=== PATIENT | male | born 1940 | race Caucasian/White ===

== ENCOUNTER 2020-06-09 11:34 | Emergency (ER) | payer MEDICARE, SELFPAY ==
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
[2020-06-09 11:36] VITALS: BP 115/85; PULSE 72; RESP 16; TEMP 36.3; O2SAT 100
--- NOTE | 2020-06-09 12:09 | ED.ABDPAIN ---
HPI - Abdominal Pain General Chief Complaint: Abdominal Pain Stated Complaint: abd pain Time Seen by Provider: 06/09/20 12:07 History of Present Illness HPI narrative: Abdominal pain for the past 4 days. Started suddenly in the right flank while cooking dinner. At that time it was sharp and severe. Over the next day it moved into the entire abdomen and became mild and dull. He has not had a bowel movement since onset. This is associated with loss of appetitie. He has a ventral hernia. No prior surgeries. Additionally having some GARCIA. No chest pain, cough, fever. Related Data Home Medications Medication Instructions Recorded Confirmed amlodipine 5 mg tablet 5 mg PO DAILY 02/14/20 aspirin 325 mg tablet 325 mg PO 3XW 02/14/20 chlorthalidone 25 mg tablet 25 mg PO DAILY 02/14/20 potassium chloride 20 mEq 20 meq PO TID 02/14/20 tablet,extended release quinapril 40 mg tablet 40 mg PO DAILY 02/14/20 spironolactone 50 mg tablet 50 mg PO DAILY 02/14/20 Allergies Allergy/AdvReac Type Severity Reaction Status Date / Time gabapentin Allergy Unknown Unknown Verified 06/09/20 11:42 Review of Systems Review of Systems: All systems reviewed & are unremarkable except as noted in HPI and below Constitutional: Constitutional: Denies chills, Denies fever(s) and Reports weakness ENT: Denies sore throat Cardiovascular: Cardiovascular: Denies chest pain Respiratory: Respiratory: Denies chest congestion, Denies cough, Reports dyspnea and Denies wheezing Gastrointestinal: Gastrointestinal: Reports abdominal pain, Reports constipation, Denies diarrhea and Denies vomiting Genitourinary: Genitourinary: Denies hematuria, Denies dysuria and Denies urinary frequency Musculoskeletal: Musculoskeletal: Denies back pain Neurologic: Denies dizziness and Reports weakness PMF Past Medical History Medical History HERNÁN (generalized anxiety disorder) HTN (hypertension) Osteoarthritis PAF (paroxysmal atrial fibrillation) Family History Family History Father Hypertension Family history of coronary artery disease Mother Hypertension Family history of diabetes mellitus in first degree relative Social History Social History Smoking status: Heavy tobacco smoker Alcohol intake: never Gender identity (if verbalized by the patient): Male Exam Const: General: healthy appearing, no acute distress and alert Orientation/consciousness: patient oriented x3 HENMT: Head: normal to inspection Neck: Neck: normal visual inspection and no lymphadenopathy Chest: Chest palpation & inspection: no tenderness Resp: Effort & Inspection: normal respiratory effort Auscultation: clear to auscultation bilaterally, no rales, no rhonchi and no wheezes Cardio: Jugular venous distension: no JVD Rate: regular rate Rhythm: regular rhythm Heart sounds: no murmurs GI: Inspection: non-distended GI Palp: Yes Soft to palpation and No Tenderness to palpation present (GI) Skin: General skin exam: normal color Neuro: General: patient oriented x3 and moves all extremities Speech: normal speech Extrem: General: no edema Psych: Appearance: grossly normal and well kempt Mental Status: mental status grossly normal Affect: normal affect Thought content: Yes Normal thought content present Course Vital Signs Vital signs: Vital Signs Temperature 36.3 C L 06/09/20 11:36 Pulse Rate 72 06/09/20 11:36 Respiratory Rate 16 06/09/20 11:36 Blood Pressure 115/85 06/09/20 11:36 Pulse Oximetry 100 06/09/20 11:36 Temperature 36.3 C L 06/09/20 11:36 Pulse Rate 80 06/09/20 14:55 Respiratory Rate 18 06/09/20 14:55 Blood Pressure 132/78 06/09/20 14:55 Pulse Oximetry 99 06/09/20 14:55 MDM - Abdominal Pain MDM Narrative Medical decision making narra
[2020-06-09 13:00] LABS: Basophils Percent Auto 0.2 % (0.2-1.2); Eosinophils Percent Auto 0.5 % (0-4.4); Hematocrit 29.1 % (42.0-52.0); Hemoglobin 10.1 g/dL (14.0-18.0); Immature Granulocyte Absolute 0.03 K/mm3 (0.00-0.031); Immature Granulocyte Percent A 0.3 % (0-0.5); Lymphocytes Absolute Auto 1.41 K/mm3 (0.9-3.2); Lymphocytes Percent Auto 16.4 % (18.3-44.2); Mean Corpuscular HGB Conc 34.7 g/dl (32-36); Mean Corpuscular Volume 89.3 fl (80-100); Mean Platelet Volume 10.7 fl (7.4-10.4); Monocytes Absolute Auto 1.3 K/mm3 (0.1-0.6); Monocytes Percent Auto 14.5 % (2.6-8.5); Neutrophils Absolute Auto 5.9 K/mm3 (1.3-6.7); Neutrophils Percent Auto 68.1 % (45.5-73.1); Platelet Count Result 234 k/mm3 (150-375); Red Blood Count 3.26 M/mm3 (4.6-6.20); Red Cell Distribution Width 13.4 % (11.5-14.5); White Blood Count 8.6 K/mm3 (4.5-10.0)
[2020-06-09 13:05] LABS: Alanine Aminotransferase 13 U/L (4-50); Albumin Level 4.2 g/dL (3.5-5.1); Alkaline Phosphatase 44 U/L (38-126); Anion Gap 7 mmol/L (8-16); Aspartate Amino Transferase 15 U/L (17-59); Bilirubin,Total 3.1 mg/dL (0.2-1.3); Blood Urea Nitrogen 25 mg/dL (9-20); Calcium 9.3 mg/dL (8.4-10.2); Carbon Dioxide 28 mmol/L (22-30); Chloride 102 mmol/L (98-107); Estimated CRCL calculation 35 ml/min; Estimated Glomerular Filt Rate 42; Glucose 123 mg/dL (75-110); Lipase 25 U/L (23-300); Potassium 4.1 mmol/L (3.4-5.0); Sodium 137 mmol/L (137-145)
[2020-06-09 13:15] LABS: NT Pro B Type Natriuretic Pept 178 PG/ML (5-100)
[2020-06-09 13:48] VITALS: BP 120/70; PULSE 78; RESP 18; O2SAT 99
[2020-06-09 13:55] LABS: Add Urine Microscopic? YES; Appearance Urine Clear (Clear); Bacteria Urine Trace /hpf; Bilirubin Urine Negative (Negative); Blood Urine Negative (Negative); Color Urine Yellow (Yellow); Glucose Urine UA Negative (Negative); Ketones Urine Negative (Negative); Leukocyte Esterase Ur Negative LEU/UL (Negative); Mucus Urine Rare /lpf; Nitrate Urine Negative (Negative); Protein Urine Negative (Negative); Specific Grav Ur 1.024 (1.001-1.035); Urobilinogen Urine Negative mg/dL (<2.0); WBC Urine 0-3 /hpf
[2020-06-09] MEDS: SODIUM CHLORIDE 0.9% IV 500 ML 999 ML IV CONT (13:56)
[2020-06-09 14:55] VITALS: BP 132/78; PULSE 80; RESP 18; O2SAT 99
== END 2020-06-09 15:13 | disposition home or self-care (01) ==
PROVIDERS: Emergency Provider Emergency Medicine; PCP Family Medicine
DX: J90 Pleural effusion, not elsewhere classified (principal); S37.011A Minor contusion of right kidney, initial encounter; Z79.82 Long term (current) use of aspirin; I10 Essential (primary) hypertension; F41.1 Generalized anxiety disorder; M19.90 Unspecified osteoarthritis, unspecified site; I48.0 Paroxysmal atrial fibrillation; E27.8 Other specified disorders of adrenal gland; N28.89 Other specified disorders of kidney and ureter; X58.XXXA Exposure to other specified factors, initial encounter
CPT/HCPCS: 36415; 71046; 74177; 80053; 81001; 83690; 83880; 85025; 96360; 99284; J7040; Q9967

== ENCOUNTER 2020-06-12 12:06 | Outpatient (CLI) | payer MEDICARE, SELFPAY ==
[2020-06-12 12:29] LABS: Basophils Percent Auto 0.2 % (0.2-1.2); Eosinophils Percent Auto 0.5 % (0-4.4); Hematocrit 30.6 % (42.0-52.0); Hemoglobin 10.7 g/dL (14.0-18.0); Immature Granulocyte Absolute 0.03 K/mm3 (0.00-0.031); Immature Granulocyte Percent A 0.3 % (0-0.5); Lymphocytes Absolute Auto 1.58 K/mm3 (0.9-3.2); Mean Corpuscular Volume 88.7 fl (80-100); Mean Platelet Volume 10.3 fl (7.4-10.4); Monocytes Absolute Auto 0.9 K/mm3 (0.1-0.6); Monocytes Percent Auto 10.7 % (2.6-8.5); Neutrophils Absolute Auto 6.2 K/mm3 (1.3-6.7); Neutrophils Percent Auto 70.3 % (45.5-73.1); Platelet Count Result 327 k/mm3 (150-375); Red Blood Count 3.45 M/mm3 (4.6-6.20); Red Cell Distribution Width 13.4 % (11.5-14.5); White Blood Count 8.8 K/mm3 (4.5-10.0)
[2020-06-12 12:39] LABS: Alanine Aminotransferase 17 U/L (4-50); Albumin Level 4.1 g/dL (3.5-5.1); Alkaline Phosphatase 50 U/L (38-126); Anion Gap 10 mmol/L (8-16); Aspartate Amino Transferase 18 U/L (17-59); Bilirubin,Total 1.9 mg/dL (0.2-1.3); Blood Urea Nitrogen 32 mg/dL (9-20); Calcium 9.4 mg/dL (8.4-10.2); Carbon Dioxide 26 mmol/L (22-30); Chloride 101 mmol/L (98-107); Estimated Glomerular Filt Rate 39; Glucose 117 mg/dL (75-110); Potassium 3.8 mmol/L (3.4-5.0); Sodium 137 mmol/L (137-145)
[2020-06-12 13:43] LABS: Folic Acid 15.6 ng/mL (2.76->20)
== END 2020-06-12 12:07 | disposition home or self-care (01) ==
PROVIDERS: PCP Family Medicine; Visit Provider Physician Assistant
DX: K59.00 Constipation, unspecified (principal); R10.31 Right lower quadrant pain; R63.0 Anorexia; R53.83 Other fatigue
CPT/HCPCS: 36415; 80053; 82607; 82746; 84443; 85025

== ENCOUNTER 2020-06-30 14:22 | Outpatient (CLI) | payer MEDICARE, SELFPAY ==
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
[2020-06-30 14:55] LABS: Estimated Glomerular Filt Rate 49
== END 2020-06-30 14:23 | disposition home or self-care (01) ==
PROVIDERS: PCP Family Medicine; Visit Provider Urology
DX: S37.011A Minor contusion of right kidney, initial encounter (principal); J90 Pleural effusion, not elsewhere classified; E27.9 Disorder of adrenal gland, unspecified
CPT/HCPCS: 74178; Q9967

== ENCOUNTER 2020-10-13 09:07 | Outpatient (CLI) | payer MEDICARE, SELFPAY ==
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
[2020-10-13 09:37] LABS: Estimated Glomerular Filt Rate 59
== END 2020-10-13 09:08 | disposition home or self-care (01) ==
PROVIDERS: PCP Family Medicine; Visit Provider Urology
DX: S37.011A Minor contusion of right kidney, initial encounter (principal)
CPT/HCPCS: 74178; Q9967

== ENCOUNTER 2020-12-05 11:12 | Outpatient (CLI) | payer MEDICARE, SELFPAY ==
[2020-12-05 11:40] LABS: Basophils Percent Auto 0.5 % (0.2-1.2); Eosinophils Absolute Auto 0.1 K/mm3 (0-0.3); Eosinophils Percent Auto 1.2 % (0-4.4); Hematocrit 40.2 % (42.0-52.0); Hemoglobin 14.3 g/dL (14.0-18.0); Immature Granulocyte Absolute 0.03 K/mm3 (0.00-0.031); Immature Granulocyte Percent A 0.5 % (0-0.5); Lymphocytes Absolute Auto 1.66 K/mm3 (0.9-3.2); Lymphocytes Percent Auto 28.4 % (18.3-44.2); Mean Corpuscular HGB Conc 35.6 g/dl (32-36); Mean Corpuscular Hemoglobin 31.2 pg (26-34); Mean Corpuscular Volume 87.8 fl (80-100); Mean Platelet Volume 10.5 fl (7.4-10.4); Monocytes Absolute Auto 0.5 K/mm3 (0.1-0.6); Neutrophils Absolute Auto 3.6 K/mm3 (1.3-6.7); Neutrophils Percent Auto 61.4 % (45.5-73.1); Platelet Count Result 203 k/mm3 (150-375); Red Blood Count 4.58 M/mm3 (4.6-6.20); Red Cell Distribution Width 14.4 % (11.5-14.5); White Blood Count 5.8 K/mm3 (4.5-10.0)
[2020-12-05 11:47] LABS: Alanine Aminotransferase 10 U/L (4-50); Albumin Level 4.6 g/dL (3.5-5.1); Alkaline Phosphatase 46 U/L (38-126); Anion Gap 8 mmol/L (8-16); Aspartate Amino Transferase 15 U/L (17-59); Bilirubin,Total 0.9 mg/dL (0.2-1.3); Blood Urea Nitrogen 21 mg/dL (9-20); Carbon Dioxide 32 mmol/L (22-30); Chloride 103 mmol/L (98-107); Cholesterol 149 mg/dL (0-200); Estimated Glomerular Filt Rate 59; Glucose 96 mg/dL (75-110); HDL Direct 45 mg/dL; Potassium 3.8 mmol/L (3.4-5.0); Sodium 143 mmol/L (137-145); Triglycerides 72 mg/dL (<150)
[2020-12-05 11:58] LABS: LDL Cholesterol Direct 93 mg/dL
[2020-12-05 11:58] LABS: Add Urine Microscopic? NO; Appearance Urine Clear (Clear); Bilirubin Urine Negative (Negative); Blood Urine Negative (Negative); Color Urine Straw (Yellow); Glucose Urine UA Negative (Negative); Ketones Urine Negative (Negative); Leukocyte Esterase Ur Negative LEU/UL (NEGATIVE); Mucus Urine Rare /lpf; Nitrate Urine Negative (Negative); Protein Urine Negative (Negative); Specific Grav Ur 1.009 (1.001-1.035); Urobilinogen Urine Negative mg/dL (<2.0); WBC Urine 0-3 /hpf (0-3)
[2020-12-05 12:19] LABS: Prostate Specific Antigen 0.8 ng/mL (< OR = 4.0)
== END 2020-12-05 11:13 | disposition home or self-care (01) ==
LOC: ANHLAB 11:14
PROVIDERS: PCP Family Medicine; Visit Provider Nurse Practitioner Family
DX: E78.2 Mixed hyperlipidemia (principal); R35.1 Nocturia; I10 Essential (primary) hypertension; K62.5 Hemorrhage of anus and rectum; S37.011A Minor contusion of right kidney, initial encounter; Z12.5 Encounter for screening for malignant neoplasm of prostate
CPT/HCPCS: 36415; 80053; 80061; 81003; 84153; 84443; 85025; G0103

== ENCOUNTER → 2020-12-20 01:48 | Outpatient (CLI) | payer MEDICARE, SELFPAY ==
[2020-12-20 18:54] LABS: SARS-CoV-2 RNA PCR Negative
== END ==
PROVIDERS: PCP Family Medicine; Visit Provider Internal Medicine Gastroenterology
DX: Z01.812 Encounter for preprocedural laboratory examination (principal); Z20.822 Contact with and (suspected) exposure to COVID-19
CPT/HCPCS: C9803; U0003; U0005

== ENCOUNTER 2020-12-24 00:48 | Day surgery (SDC) | payer MEDICARE, SELFPAY ==
[2020-12-15 16:02] VITALS: BMI 24.4
--- NOTE | 2020-12-23 11:38 | WPDANESEPPF ---
Anes - Initial Pre Proc Eval Procedure: Operation Date: 12/24/20 09:00 Proposed Procedures p Colonoscopy - Tony Tejeda MD <Hernán Torres DO - Last Filed: 01/06/21 17:29> Date/Time: 12/23/20 11:38 <Hernán Torres DO - Last Filed: 01/06/21 17:29> Surgeon: Tony Tejeda MD <Hernán Torres DO - Last Filed: 01/06/21 17:29> Pre Op Diagnosis: Rectal Bleeding <Hernán Torres DO - Last Filed: 01/06/21 17:29> Patient Data Age: 80 Gender: M Height: 1.75 m Weight: 75 kg <Hernán Torres DO - Last Filed: 01/06/21 17:29> Allergies Allergy/AdvReac Type Severity Reaction Status Date / Time No Known Allergies Allergy Verified 12/24/20 07:52 <Hernán Torres DO - Last Filed: 01/06/21 17:29> Home Medications Medication Instructions Recorded Confirmed Type amlodipine 5 mg tablet 5 mg PO DAILY 02/14/20 12/15/20 History aspirin 325 mg tablet 325 mg PO 3XW 02/14/20 12/15/20 History chlorthalidone 25 mg tablet 25 mg PO DAILY 02/14/20 12/15/20 History potassium chloride 20 mEq 20 meq PO TID 02/14/20 12/15/20 History tablet,extended release quinapril 40 mg tablet 40 mg PO DAILY 02/14/20 12/15/20 History spironolactone 50 mg tablet 50 mg PO DAILY 02/14/20 12/15/20 History hydrocortisone 1 % topical cream 1 applic TOPICAL BID #28.35 g 12/24/20 Rx <Hernán Torres DO - Last Filed: 01/06/21 17:29> Patient hx anesthesia problems: none <Donald Killian MD - Last Filed: 12/24/20 08:05> Family hx anesthesia problems: none <Donald Killian MD - Last Filed: 12/24/20 08:05> [facility] Past Medical History Medical History: Medical History (Updated 12/09/20 @ 16:41 by STACIE Cohen) HERNÁN (generalized anxiety disorder) HTN (hypertension) Osteoarthritis PAF (paroxysmal atrial fibrillation) <Hernán Torres DO - Last Filed: 01/06/21 17:29> Family History Family History: Family History Father Hypertension Family history of coronary artery disease Mother Hypertension Family history of diabetes mellitus in first degree relative <Hernán Torres DO - Last Filed: 01/06/21 17:29> Social History Social History: Social History (Updated 12/05/20 @ 10:29 by Bebe Almeida MA) Smoking packs per day: 1 Smoking cigarettes per day: 20.0 Years smoked: 40 Smoking pack-years: 40.00 Smoking status: Current every day smoker Tobacco type: cigarettes Alcohol intake: never Substance use: never Substance use type: does not use Living arrangements: with family Gender identity (if verbalized by the patient): Male Spiritual care concerns: No <Hernán Torres DO - Last Filed: 01/06/21 17:29> Anes - Eval Final PreProcedure Day of Procedure 12/23/20 11:38 <Hernán Torres DO - Last Filed: 01/06/21 17:29> Patient weight: normal <Hernán Torres DO - Last Filed: 01/06/21 17:29> Heart: regular rate and rhythm <Hernán Torres DO - Last Filed: 01/06/21 17:29> Lungs: clear to auscultation and normal air movement <Hernán Torres DO - Last Filed: 01/06/21 17:29> Airway: Mallampati scale class II <Hernán Torres DO - Last Filed: 01/06/21 17:29> Neurological: alert and oriented <Hernán Torres DO - Last Filed: 01/06/21 17:29> Last oral intake: >/= 8 hours <Hernán Torres DO - Last Filed: 01/06/21 17:29> ASA classification: III <Hernán Torres DO - Last Filed: 01/06/21 17:29> Emergent: no <Hernán Torres DO - Last Filed: 01/06/21 17:29> Anesthetic plan: proceed <Hernán Torres DO - Last Filed: 01/06/21 17:29> Anesthesia type and monitoring: general GIVS and standard monitoring <Hernán Torres DO - Last Filed: 01/06/21 17:29> I
[2020-12-24 07:53] VITALS: BP 132/76; PULSE 64; RESP 16; TEMP 36.7; O2SAT 99; BMI 25.0
[2020-12-24] MEDS: LACTATED RINGERS 1,000 ML 150 ML IV CONT (08:02)
--- NOTE | 2020-12-24 09:19 | PM.HPGS ---
History of Present Illness History of Present Illness Consent: Risks, benefits, and alternatives have been discussed and questions answered. Patient agrees to proceed with procedure. Chief complaint: Rectal Bleeding Narrative: Alec Ortiz is a 80 year old male with intermittent rectal bleeding, last colonoscopy 2017 with hemorrhoids. He has not tried any med for the bleeding. Review of Systems Constitutional: Constitutional: Denies headache(s) and Denies weakness Eyes: Eyes: Denies blurry vision ENT: Reports Normal hearing present, Denies headache(s) and Denies neck pain Cardiovascular: Cardiovascular: Denies chest pain and Denies dyspnea Respiratory: Respiratory: Denies dyspnea Gastrointestinal: Gastrointestinal: Reports no additional gastrointestinal complaints Genitourinary: Genitourinary: Denies dysuria Musculoskeletal: Musculoskeletal: Denies neck pain Integumentary/Breasts: Skin/Breast: Denies dry skin Neurologic: Reports Normal hearing present, Denies headache(s) and Denies weakness Psychiatric: Psychiatric: Denies anxiety Endocrine: Endocrine: Denies change in body appearance Hematologic/Lymphatic: Hematologic/Lymphatic: Denies easy bleeding Allergic/Immunologic: Allergic/Immunologic: Denies urticaria PMFSH Past Medical History Medical History (Updated 12/09/20 @ 16:41 by STACIE Cohen) HERNÁN (generalized anxiety disorder) HTN (hypertension) Osteoarthritis PAF (paroxysmal atrial fibrillation) Family History Family History Father Hypertension Family history of coronary artery disease Mother Hypertension Family history of diabetes mellitus in first degree relative Social History Social History (Updated 12/05/20 @ 10:29 by Bebe Almeida MA) Smoking packs per day: 1 Smoking cigarettes per day: 20.0 Years smoked: 40 Smoking pack-years: 40.00 Smoking status: Current every day smoker Tobacco type: cigarettes Alcohol intake: never Substance use: never Substance use type: does not use Living arrangements: with family Gender identity (if verbalized by the patient): Male Spiritual care concerns: No Meds Home Medications and Allergies Home Medications Medication Instructions Recorded Confirmed Type amlodipine 5 mg tablet 5 mg PO DAILY 02/14/20 12/15/20 History aspirin 325 mg tablet 325 mg PO 3XW 02/14/20 12/15/20 History chlorthalidone 25 mg tablet 25 mg PO DAILY 02/14/20 12/15/20 History potassium chloride 20 mEq 20 meq PO TID 02/14/20 12/15/20 History tablet,extended release quinapril 40 mg tablet 40 mg PO DAILY 02/14/20 12/15/20 History spironolactone 50 mg tablet 50 mg PO DAILY 02/14/20 12/15/20 History Allergies Allergy/AdvReac Type Severity Reaction Status Date / Time No Known Allergies Allergy Verified 12/24/20 07:52 Vital Signs Vital Signs - 24 hr 12/24/20 07:53 Temperature 98.1 F Pulse Rate 64 Respiratory Rate 16 Blood Pressure 132/76 Pulse Oximetry 99 Exam Const: General: comfortable and no acute distress HENMT: General nose exam: Normal nares present Eyes: General: appearance normal, both eyes and all related structures Neck: Neck: no JVD Resp: Auscultation: clear to auscultation bilaterally Cardio: Rate: regular rate Rhythm: regular rhythm GI: Inspection: non-distended GI Palp: Yes Soft to palpation Skin: General skin exam: normal color Neuro: General: gait normal Speech: normal speech Extrem: General: normal to inspection Psych: Mental Status: mental status grossly normal Assessment and Plan Assessment and plan (1) Rectal bleeding: Code(s): K62.5 - Hemorrhage of anus and rectum Status: Acute Assessment and Plan: proceed with colonoscopy
[2020-12-24 09:48] VITALS: BP 94/52; PULSE 54; RESP 19; O2SAT 100
[2020-12-24 09:58] VITALS: BP 99/60; PULSE 64; RESP 19; O2SAT 99
[2020-12-24 10:08] VITALS: BP 115/88; PULSE 61; RESP 17; O2SAT 100
== END 2020-12-24 10:25 | disposition home or self-care (01) ==
PROVIDERS: PCP Family Medicine; Visit Provider Internal Medicine Gastroenterology
PROC: 0DJD8ZZ Inspection of Lower Intestinal Tract, Via Natural or Artificial Opening Endoscopic (ICD-10-PCS; CPT 45378; principal; 2020-12-24 09:00)
DX: K92.1 Melena (principal); K64.8 Other hemorrhoids; I10 Essential (primary) hypertension; I48.0 Paroxysmal atrial fibrillation; F41.1 Generalized anxiety disorder; M19.90 Unspecified osteoarthritis, unspecified site; F17.210 Nicotine dependence, cigarettes, uncomplicated; Z79.82 Long term (current) use of aspirin
CPT/HCPCS: 45378; C9803; J2704; J7120; U0003; U0005

== ENCOUNTER 2021-01-30 10:59 | Outpatient (CLI) | payer MEDICARE, SELFPAY ==
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
[2021-01-30 11:15] LABS: Estimated Glomerular Filt Rate 49
== END 2021-01-30 11:00 | disposition home or self-care (01) ==
PROVIDERS: PCP Family Medicine; Visit Provider Urology
DX: S37.011A Minor contusion of right kidney, initial encounter (principal); K80.20 Calculus of gallbladder without cholecystitis without obstruction
CPT/HCPCS: 74178; Q9967

== ENCOUNTER 2021-02-03 13:50 | Outpatient (CLI) | payer MEDICARE, SELFPAY | END 2021-02-03 13:51 | disposition home or self-care (01) | LOC: ANHCOVIDVC 13:51 | PROVIDERS: PCP Family Medicine | DX: Z23 Encounter for immunization (principal) | CPT/HCPCS: 0001A; 91300 ==

== ENCOUNTER 2021-02-24 12:57 | Outpatient (CLI) | payer MEDICARE, SELFPAY | END 2021-02-24 12:58 | disposition home or self-care (01) | LOC: ANHCOVIDVC 12:58 | PROVIDERS: PCP Family Medicine | DX: Z23 Encounter for immunization (principal) | CPT/HCPCS: 0002A; 91300 ==

== ENCOUNTER 2021-04-07 10:57 | Outpatient (CLI) | payer MEDICARE, SELFPAY ==
[2021-04-07 11:23] LABS: Basophils Percent Auto 0.3 % (0.2-1.2); Eosinophils Percent Auto 0.6 % (0-4.4); Hematocrit 41.3 % (42.0-52.0); Hemoglobin 14.3 g/dL (14.0-18.0); Immature Granulocyte Absolute 0.03 K/mm3 (0.00-0.031); Immature Granulocyte Percent A 0.5 % (0-0.5); Lymphocytes Absolute Auto 1.55 K/mm3 (0.9-3.2); Lymphocytes Percent Auto 24.2 % (18.3-44.2); Mean Corpuscular HGB Conc 34.6 g/dl (32-36); Mean Corpuscular Hemoglobin 30.9 pg (26-34); Mean Corpuscular Volume 89.2 fl (80-100); Monocytes Absolute Auto 0.6 K/mm3 (0.1-0.6); Monocytes Percent Auto 8.6 % (2.6-8.5); Neutrophils Absolute Auto 4.2 K/mm3 (1.3-6.7); Neutrophils Percent Auto 65.8 % (45.5-73.1); Platelet Count Result 194 k/mm3 (150-375); Red Blood Count 4.63 M/mm3 (4.6-6.20); Red Cell Distribution Width 14.5 % (11.5-14.5); White Blood Count 6.4 K/mm3 (4.5-10.0)
[2021-04-07 11:34] LABS: Alanine Aminotransferase 12 U/L (4-50); Albumin Level 4.8 g/dL (3.5-5.1); Alkaline Phosphatase 44 U/L (38-126); Anion Gap 11 mmol/L (8-16); Aspartate Amino Transferase 23 U/L (17-59); Bilirubin,Total 1.3 mg/dL (0.2-1.3); Blood Urea Nitrogen 19 mg/dL (9-20); Calcium 10.2 mg/dL (8.4-10.2); Carbon Dioxide 29 mmol/L (22-30); Chloride 104 mmol/L (98-107); Estimated Glomerular Filt Rate 53; Glucose 113 mg/dL (75-110); Potassium 4.4 mmol/L (3.4-5.0); Sodium 144 mmol/L (137-145)
== END 2021-04-07 10:58 | disposition home or self-care (01) ==
PROVIDERS: PCP Family Medicine; Visit Provider Nurse Practitioner Family
DX: D64.9 Anemia, unspecified (principal); I10 Essential (primary) hypertension
CPT/HCPCS: 36415; 80053; 85025

== ENCOUNTER 2021-04-20 12:29 | Outpatient (CLI) | payer MEDICARE, SELFPAY ==
--- NOTE | ~2021-04-20 | CT_ITS ---
EXAMINATION: CT abdomen pelvis wo/w con DATE: 04/20/2021 13:28 INDICATION: Renal hematoma TECHNIQUE: Computed tomography (CT) of the abdomen and pelvis was performed without and subsequently with 100 cc Omnipaque 350 intravenous contrast. Automated exposure control and iterative reconstructi on technique were employed. Exam dose: 573.67 mGy-cm total exam DLP. COMPARISON: 01/30/2021 CT abdomen pelvis 10/2020 CT abdomen pelvis FINDINGS: The lung bases are clear of infiltrate or consolidation. Normal heart size. No pericardia l or pleural effusion. Small sliding hiatal hernia. Multiple gallstones are again noted. No gallbladder wall thickening or pericholecystic fluid or fat s tranding. No bile duct or pancreatic duct dilatation. There are a couple of up to 7 mm hepatic cysts. Several renal cysts are noted measuring up to 1.9 cm on the right and 1.6 cm on the left. Further mild decreased subcapsular hematoma along the lateral aspect of the right kidney. No hepatic, splenic, pancreatic, and adrenal space-occupying mass lesion is evident otherwise. Normal caliber of the atherosclerotic abdominal aorta. No intraperitoneal or retroperitoneal or pelvi c mass lesion or adenopathy or ascites. There is prostate enlargement and calcification. Bilateral fat-containing inguinal hernias, larger on the right. No bowel obstruction or intraperitoneal free air. Included skeletal structures are unremarkable other than degenerative change of the lower thoracic an d lumbar spine and bilateral hip osteoarthritis. IMPRESSION: Further decreased size of lateral right subcapsular renal hematoma Hepatic and renal cysts Cholelithiasis Small sliding hiatal hernia Prostate enlargement and calcification Reviewed, dictated and finalized at [facility]. Reviewed, dictated and finalized at location B.
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
== END 2021-04-20 12:30 | disposition home or self-care (01) ==
PROVIDERS: PCP Family Medicine; Referring Provider Nurse Practitioner Family; Visit Provider Urology
DX: S37.011A Minor contusion of right kidney, initial encounter (principal); K76.89 Other specified diseases of liver; N28.1 Cyst of kidney, acquired; K80.20 Calculus of gallbladder without cholecystitis without obstruction; K44.9 Diaphragmatic hernia without obstruction or gangrene; N40.0 Benign prostatic hyperplasia without lower urinary tract symptoms; N42.0 Calculus of prostate; Z12.2 Encounter for screening for malignant neoplasm of respiratory organs; Z87.891 Personal history of nicotine dependence
CPT/HCPCS: 71271; 74178; Q9967

== ENCOUNTER 2021-08-23 19:29 | Emergency (ER) | payer MEDICARE, SELFPAY ==
[2021-08-23 19:36] VITALS: BP 151/69; PULSE 78; RESP 18; TEMP 36.8; O2SAT 100
[2021-08-23 20:05] LABS: Basophils Percent Auto 0.3 % (0.2-1.2); Eosinophils Absolute Auto 0.1 K/mm3 (0-0.3); Eosinophils Percent Auto 0.5 % (0-4.4); Hematocrit 40.6 % (42.0-52.0); Hemoglobin 14.5 g/dL (14.0-18.0); Immature Granulocyte Absolute 0.03 K/mm3 (0.00-0.031); Immature Granulocyte Percent A 0.3 % (0-0.5); Lymphocytes Absolute Auto 1.58 K/mm3 (0.9-3.2); Lymphocytes Percent Auto 17.2 % (18.3-44.2); Mean Corpuscular HGB Conc 35.7 g/dl (32-36); Mean Corpuscular Hemoglobin 31.7 pg (26-34); Mean Corpuscular Volume 88.8 fl (80-100); Mean Platelet Volume 10.2 fl (7.4-10.4); Monocytes Absolute Auto 0.5 K/mm3 (0.1-0.6); Monocytes Percent Auto 5.1 % (2.6-8.5); Neutrophils Percent Auto 76.6 % (45.5-73.1); Platelet Count Result 206 k/mm3 (150-375); Red Blood Count 4.57 M/mm3 (4.6-6.20); White Blood Count 9.2 K/mm3 (4.5-10.0)
[2021-08-23 20:14] LABS: Alanine Aminotransferase 12 U/L (4-50); Alkaline Phosphatase 53 U/L (38-126); Anion Gap 8 mmol/L (8-16); Aspartate Amino Transferase 19 U/L (17-59); Bilirubin,Total 1.6 mg/dL (0.2-1.3); Blood Urea Nitrogen 17 mg/dL (9-20); Calcium 10.2 mg/dL (8.4-10.2); Carbon Dioxide 29 mmol/L (22-30); Chloride 104 mmol/L (98-107); Estimated CRCL calculation 41 ml/min; Estimated Glomerular Filt Rate 49; Glucose 108 mg/dL (65-110); Potassium 3.7 mmol/L (3.4-5.0); Prothrombin Time 13.3 Seconds (11.1-14.7); Sodium 141 mmol/L (137-145)
[2021-08-23 20:15] LABS: Partial Thromboplastin Time 28.8 SECONDS (22.3-36.8)
[2021-08-23 21:21] VITALS: BP 148/71; PULSE 66; PULSE 67; RESP 16; O2SAT 100
[2021-08-23 21:22] VITALS: BP 156/73; PULSE 68
[2021-08-23 21:23] VITALS: BP 167/84; PULSE 85
--- NOTE | 2021-08-23 21:26 | ED.GIBLEED ---
HPI - GI Bleed General Chief complaint: GI Bleed Stated complaint: rectal bleed Time Seen by Provider: 08/23/21 21:21 Source: RN notes reviewed History of Present Illness HPI Narrative: Patient presents emergency department from home for rectal bleeding. Patient states symptoms began at approximately 5 PM this evening states he had bright red blood from the rectum. States he does have a previous history of this and had a colonoscopy in December that showed internal hemorrhoids. He states he is on blood thinners he denies any fevers or chills abdominal pain nausea or vomiting or any other symptoms denies any dizziness Related Data Home Medications Medication Instructions Recorded Confirmed amlodipine 5 mg tablet 5 mg PO DAILY 02/14/20 12/15/20 aspirin 325 mg tablet 325 mg PO 3XW 02/14/20 12/15/20 chlorthalidone 25 mg tablet 25 mg PO DAILY 02/14/20 12/15/20 potassium chloride 20 mEq 20 meq PO TID 02/14/20 12/15/20 tablet,extended release quinapril 40 mg tablet 40 mg PO DAILY 02/14/20 12/15/20 spironolactone 50 mg tablet 50 mg PO DAILY 02/14/20 12/15/20 Allergies Allergy/AdvReac Type Severity Reaction Status Date / Time No Known Allergies Allergy Verified 08/23/21 21:20 Review of Systems Review of Systems: Gen.: Denies fevers or chills ENT: Denies congestion Respiratory: Denies shortness of breath or cough CV: Denies chest pain or palpitations GI: See HPI Musculoskeletal: Denies back pain or muscle pain Neuro: Denies numbness, tingling, weakness or focal weakness Skin: Denies rash Except as documented, all other systems reviewed and negative [facility] Past Medical History Medical History (Updated 08/23/21 @ 22:54 by Alec Kirkpatrick DO) HERNÁN (generalized anxiety disorder) HTN (hypertension) Osteoarthritis PAF (paroxysmal atrial fibrillation) Family History Family History Father Hypertension Family history of coronary artery disease Mother Hypertension Family history of diabetes mellitus in first degree relative Social History Social History Smoking packs per day: 1 Smoking cigarettes per day: 20.0 Years smoked: 40 Smoking pack-years: 40.00 Smoking status: Current every day smoker Tobacco type: cigarettes Alcohol intake: never Substance use: never Substance use type: does not use Gender identity (if verbalized by the patient): Male Spiritual care concerns: No Exam Narrative: APPEARANCE: No acute distress, nontoxic, resting in bed EYES: EOMI HEENT: Normocephalic, atraumatic, OMM RESPIRATORY: No respiratory distress Clear to auscultation bilaterally with no rhonchi wheezing or rales. CARDIOVASCULAR: Regular rate and rhythm without murmurs rubs or gallops. ABDOMINAL: Soft, nontender, nondistended, no rebound or guarding Rectal: No external hemorrhoids small amount of bright red blood at rectum MUSCULOSKELETAl: Moves all extremities. No clubbing, cyanosis or edema. NEURO: Awake and alert. Following commands, speech normal, no focal deficits SKIN:: Warm, dry. No rashes lesions or abrasions PSYCHIATRIC: Normal affect/mood, Course Course Emergency Course: Reviewed old records patient with a colonoscopy Dr. Hall in December 2020 showing internal hemorrhoids Called discussed with Dr. Hall presentation work-up at this time he recommends patient get an Anusol suppository and if bleeding improve may be discharged to follow-up as an outpatient Patient with no further bleeding following suppository will discharge Discussed with patient results of workup and diagnosis. Discussed need for follow-up with primary care, proper use of medication, and reasons to return to the emergency department. Patient understands and agrees to current treatment plan Vital Signs Vital signs: Vital Signs Temperature 98.2 F 08/23/21 19:36 Pulse Rate 78 08/23/21 19:36 Respiratory Rate
[2021-08-23] MEDS: HYDROCORTISONE ACETATE 25 MG SUPPOSITORY RECTAL (21:42)
[2021-08-23 23:01] VITALS: BP 167/84; PULSE 80; RESP 16; O2SAT 99
== END 2021-08-23 23:04 | disposition home or self-care (01) ==
PROVIDERS: Emergency Provider Emergency Medicine; PCP Family Medicine
DX: K64.8 Other hemorrhoids (principal); F41.1 Generalized anxiety disorder; I10 Essential (primary) hypertension; M19.90 Unspecified osteoarthritis, unspecified site; I48.0 Paroxysmal atrial fibrillation; F17.210 Nicotine dependence, cigarettes, uncomplicated; Z79.82 Long term (current) use of aspirin; Z79.899 Other long term (current) drug therapy
CPT/HCPCS: 36415; 80053; 85025; 85610; 85730; 86850; 86900; 86901; 99283; A9270

== ENCOUNTER 2022-06-02 14:37 | Outpatient (CLI) | payer MEDICARE, SELFPAY ==
[2022-06-02 15:36] LABS: Basophils Percent Auto 0.4 % (0.2-1.2); Eosinophils Percent Auto 0.6 % (0-4.4); Hematocrit 39.3 % (42.0-52.0); Hemoglobin 13.8 g/dL (14.0-18.0); Immature Granulocyte Absolute 0.02 K/mm3 (0.00-0.031); Immature Granulocyte Percent A 0.3 % (0-0.5); Lymphocytes Absolute Auto 1.68 K/mm3 (0.9-3.2); Lymphocytes Percent Auto 24.8 % (18.3-44.2); Mean Corpuscular HGB Conc 35.1 g/dl (32-36); Mean Corpuscular Volume 88.3 fl (80-100); Mean Platelet Volume 11.1 fl (7.4-10.4); Monocytes Absolute Auto 0.5 K/mm3 (0.1-0.6); Monocytes Percent Auto 7.5 % (2.6-8.5); Neutrophils Absolute Auto 4.5 K/mm3 (1.3-6.7); Neutrophils Percent Auto 66.4 % (45.5-73.1); Platelet Count Result 209 k/mm3 (150-375); Red Blood Count 4.45 M/mm3 (4.6-6.20); Red Cell Distribution Width 14.5 % (11.5-14.5); White Blood Count 6.8 K/mm3 (4.5-10.0)
[2022-06-02 15:37] LABS: Appearance Urine Clear (Clear); Bilirubin Urine Negative (Negative); Blood Urine Negative (Negative); Color Urine Yellow (Yellow); Glucose Urine UA Negative (Negative); Ketones Urine Negative (Negative); Leukocyte Esterase Ur Negative LEU/UL (NEGATIVE); Nitrate Urine Negative (Negative); Protein Urine Negative (Negative); Specific Grav Ur 1.015 (1.001-1.035); Urobilinogen Urine 0.2 mg/dL (<2.0)
[2022-06-02 15:41] LABS: Mucus Urine Rare /lpf; RBC Urine 0-2 /hpf (0-2)
[2022-06-02 15:48] LABS: Alanine Aminotransferase 14 U/L (6-50); Albumin Level 4.6 g/dL (3.5-5.1); Alkaline Phosphatase 43 U/L (38-126); Anion Gap 9 mmol/L (8-16); Aspartate Amino Transferase 18 U/L (17-59); Bilirubin,Total 2.3 mg/dL (0.2-1.3); Blood Urea Nitrogen 15 mg/dL (9-20); Calcium 9.5 mg/dL (8.4-10.2); Carbon Dioxide 28 mmol/L (22-30); Chloride 102 mmol/L (98-107); Cholesterol 128 mg/dL (0-200); Estimated Glomerular Filt Rate 58; Glucose 92 mg/dL (65-110); HDL Direct 40 mg/dL; Sodium 139 mmol/L (137-145); Triglycerides 94 mg/dL (<150)
[2022-06-02 15:53] LABS: Add Urine Microscopic? NO
[2022-06-02 15:59] LABS: LDL Cholesterol Direct 70 mg/dL
== END 2022-06-02 14:38 | disposition home or self-care (01) ==
LOC: ANHLAB 14:38
PROVIDERS: PCP Physician Assistant; Visit Provider Physician Assistant
DX: I10 Essential (primary) hypertension (principal); Z72.0 Tobacco use
CPT/HCPCS: 36415; 80053; 80061; 81003; 84443; 85025

== ENCOUNTER 2022-06-25 09:33 | Outpatient (CLI) | payer MEDICARE, SELFPAY ==
[2022-06-25 10:07] LABS: Basophils Percent Auto 0.4 % (0.2-1.2); Eosinophils Absolute Auto 0.1 K/mm3 (0-0.3); Eosinophils Percent Auto 1.1 % (0-4.4); Hematocrit 38.4 % (42.0-52.0); Hemoglobin 13.2 g/dL (14.0-18.0); Immature Granulocyte Absolute 0.02 K/mm3 (0.00-0.031); Immature Granulocyte Percent A 0.4 % (0-0.5); Lymphocytes Absolute Auto 1.28 K/mm3 (0.9-3.2); Lymphocytes Percent Auto 28.3 % (18.3-44.2); Mean Corpuscular HGB Conc 34.4 g/dl (32-36); Mean Corpuscular Volume 90.1 fl (80-100); Mean Platelet Volume 10.9 fl (7.4-10.4); Monocytes Absolute Auto 0.4 K/mm3 (0.1-0.6); Monocytes Percent Auto 8.2 % (2.6-8.5); Neutrophils Absolute Auto 2.8 K/mm3 (1.3-6.7); Neutrophils Percent Auto 61.6 % (45.5-73.1); Platelet Count Result 201 k/mm3 (150-375); Red Blood Count 4.26 M/mm3 (4.6-6.20); Red Cell Distribution Width 14.8 % (11.5-14.5); White Blood Count 4.5 K/mm3 (4.5-10.0)
[2022-06-25 10:22] LABS: Alanine Aminotransferase 14 U/L (6-50); Albumin Level 4.2 g/dL (3.5-5.1); Alkaline Phosphatase 36 U/L (38-126); Anion Gap 9 mmol/L (8-16); Aspartate Amino Transferase 15 U/L (17-59); Bilirubin,Total 2.3 mg/dL (0.2-1.3); Blood Urea Nitrogen 18 mg/dL (9-20); Calcium 9.3 mg/dL (8.4-10.2); Carbon Dioxide 28 mmol/L (22-30); Chloride 103 mmol/L (98-107); Estimated Glomerular Filt Rate > 60; Glucose 95 mg/dL (65-110); Sodium 140 mmol/L (137-145)
[2022-06-25 10:40] LABS: Iron 165 ug/dL (49-181)
[2022-06-25 11:01] LABS: Percent Iron Saturation 57 % (20-50)
[2022-06-25 11:28] LABS: Folic Acid 7.4 ng/mL (2.76->20)
== END 2022-06-25 09:34 | disposition home or self-care (01) ==
PROVIDERS: PCP Physician Assistant; Referring Provider Family Medicine; Visit Provider Physician Assistant
DX: D64.9 Anemia, unspecified (principal); E87.6 Hypokalemia
CPT/HCPCS: 36415; 80053; 82607; 82728; 82746; 83540; 83550; 85025

== ENCOUNTER 2022-07-20 08:56 | Outpatient (CLI) | payer MEDICARE, SELFPAY ==
[2022-07-20 09:50] LABS: Anion Gap 14 mmol/L (8-16); Blood Urea Nitrogen 19 mg/dL (9-20); Calcium 9.1 mg/dL (8.4-10.2); Carbon Dioxide 26 mmol/L (22-30); Chloride 104 mmol/L (98-107); Estimated Glomerular Filt Rate 58; Glucose 100 mg/dL (65-110); Sodium 144 mmol/L (137-145)
== END 2022-07-20 08:57 | disposition home or self-care (01) ==
PROVIDERS: PCP Family Medicine; Visit Provider Family Medicine
DX: E87.6 Hypokalemia (principal)
CPT/HCPCS: 36415; 80048

== ENCOUNTER 2022-09-06 19:28 | Inpatient (IN) | payer MEDICARE, SELFPAY ==
[2022-09-06] VITALS (10 sets, daily range): BP systolic 128–142; BP diastolic 55–87; PULSE 84–99; RESP 12–27; TEMP 37.1; O2SAT 94–100
--- NOTE | ~2022-09-06 | US_ITS ---
US abdomen limited INDICATION: Elevated liver function tests. PROCEDURE: Realtime right upper abdominal ultrasound. COMPARISON: No prior studies for comparison. FINDINGS: There are echogenic foci in the pancreas, suspicious for chronic pancreatitis. Liver is en larged measuring 19.8 cm. There is a cyst of the left hepatic lobe measuring 1.2 cm There is normal directional flow in the portal vein. There are gallstones and gallbladder sludge. There is gallbladder wall thickening measuring 3 mm. Co mmon bile duct measures 8 mm. No sonographic Pedroza's sign. IMPRESSION: 1: Cholelithiasis with gallbladder sludge and gallbladder wall thickening. Mildly dilated common bile duct. This constellation of findings is suspicious for cholecystitis. 2: Hepatomegaly. Reviewed, dictated and finalized at location A. ED SEAT TRIMMER IMPRESSION: 1: Cholelithiasis with gallbladder sludge and gallbladder wall thickening. Mild ly dilated common bile duct. This constellation of findings is suspicious for c holecystitis. 2: Hepatomegaly.
--- NOTE | ~2022-09-06 | CT_ITS ---
EXAMINATION: CT abdomen pelvis w con DATE: 09/06/2022 21:07 INDICATION: abd pain, sepsis TECHNIQUE: Computed tomography (CT) of the abdomen and pelvis was performed with 100 mL Omnipaque-350 intravenous contrast. Automated exposure control and iterative reconstruction technique were employe d. The dose-length product was 301.58 mGy-cm. COMPARISON: 04/20/2021. FINDINGS: Lower thorax: Small hiatal hernia. Coronary artery calcification. Liver: Hepatomegaly. Simple left lobe liver cyst and additional subcentimeter liver lesions that are too small to characterize. Intrahepatic bile duct dilation. Biliary/Gallbladder: Gallbladder hydrops. Cholelithiasis. Extrahepatic bile duct dilation. 5 mm calci fication in the distal duct Pancreas: No mass or duct dilation. Spleen: Mild splenomegaly. Adrenals:No mass. Kidneys: Multiple simple bilateral renal cysts and lesions that are too small to characterize. Resolv ing subcapsular hematoma at the right kidney midpole. GI tract: No small or large bowel dilation. Normal appendix. Mesentery/Peritoneum: No ascites, mass, or free air. Retroperitoneum: No mass. Atherosclerotic abdominal aortic and/or arterial calcifications. Pelvis: Distended urinary bladder with wall thickening likely secondary to outlet compromise from pro statomegaly. Soft Tissues: Soft tissues and body wall unremarkable. Bones: No acute osseous finding. IMPRESSION: Choledocholithiasis, causing moderate intra and extrahepatic bile duct dilation and gallbladder hydro ps. Reviewed, dictated and finalized at location K. ICAL SUPPLIES STERILIZER IMPRESSION: Choledocholithiasis, causing moderate intra and extrahepatic bile duct dilation and gallbladder hydrops.
--- NOTE | ~2022-09-06 | XR_ITS ---
EXAMINATION: XR ERCP DATE: 09/07/2022 11:24 INDICATION: Choledocholithiasis. TECHNIQUE: 4 spot fluoroscopic images of the right upper quadrant were obtained during endoscopic ret rograde cholangiopancreatography (ERCP). Fluoroscopy exposure time was 76. COMPARISON: CT abdomen and pelvis 09/06/2022 FINDINGS: The endoscope is in the second portion the duodenum. Images demonstrate opacification of th e biliary tree and balloon sweeping of the tree. The common duct is dilated. IMPRESSION: 1. Dilated common duct. Please refer to the ERCP procedure note for additional details. Reviewed, dictated and finalized at location A. [employer]
[2022-09-06 20:13] LABS: Basophils Absolute Auto 0.1 K/mm3 (0.0-0.1); Basophils Percent Auto 0.4 % (0.2-1.2); Eosinophils Percent Auto 0.2 % (0-4.4); Hematocrit 40.1 % (42.0-52.0); Hemoglobin 13.8 g/dL (14.0-18.0); Immature Granulocyte Absolute 0.07 K/mm3 (0.00-0.031); Immature Granulocyte Percent A 0.5 % (0-0.5); Lymphocytes Absolute Auto 0.83 K/mm3 (0.9-3.2); Lymphocytes Percent Auto 6.1 % (18.3-44.2); Mean Corpuscular HGB Conc 34.4 g/dl (32-36); Mean Corpuscular Hemoglobin 31.2 pg (26-34); Mean Corpuscular Volume 90.5 fl (80-100); Mean Platelet Volume 10.9 fl (7.4-10.4); Monocytes Absolute Auto 0.5 K/mm3 (0.1-0.6); Monocytes Percent Auto 3.3 % (2.6-8.5); Neutrophils Absolute Auto 12.1 K/mm3 (1.3-6.7); Neutrophils Percent Auto 89.5 % (45.5-73.1); Platelet Count Result 259 k/mm3 (150-375); Red Blood Count 4.43 M/mm3 (4.6-6.20); Red Cell Distribution Width 14.2 % (11.5-14.5); White Blood Count 13.6 K/mm3 (4.5-10.0)
[2022-09-06 20:33] LABS: Alanine Aminotransferase 638 U/L (6-50); Albumin Level 4.6 g/dL (3.5-5.1); Alkaline Phosphatase 273 U/L (38-126); Anion Gap 10 mmol/L (8-16); Aspartate Amino Transferase 623 U/L (17-59); Bilirubin,Total 7.8 mg/dL (0.2-1.3); Blood Urea Nitrogen 19 mg/dL (9-20); Calcium 10.1 mg/dL (8.4-10.2); Carbon Dioxide 28 mmol/L (22-30); Chloride 100 mmol/L (98-107); Estimated CRCL calculation 43 ml/min; Estimated Glomerular Filt Rate 58; Glucose 128 mg/dL (65-110); Lactic Acid Reflex 3.4 mmol/L (0.7-2.0); Lipase 72 U/L (23-300); Potassium 3.9 mmol/L (3.4-5.0); Sodium 138 mmol/L (137-145)
--- NOTE | 2022-09-06 21:46 | ED.ABDPAIN ---
HPI - Abdominal Pain General Chief Complaint: Abdominal Pain Stated Complaint: abd pain Time Seen by Provider: 09/06/22 21:39 Source: patient Mode of arrival: ambulatory Limitations: no limitations History of Present Illness HPI narrative: Patient is an 82-year-old male with a history of hypertension, paroxysmal atrial fibrillation, osteoarthritis, presenting to the emergency department for evaluation of right upper quadrant pain. Pain began yesterday evening and kept the patient up most of the night overnight. Patient states that he had nausea and then 3 episodes of nonbloody, nonbilious emesis this afternoon. Patient denies fever, chills, but reports severe, aching, sharp right upper quadrant pain without radiation into the chest or back. Patient denies associated cough, shortness of breath. He denies diarrhea or constipation. He reports dark color to his urine without dysuria. Patient denies history of abdominal surgery. He reports mild abdominal distention. Patient reports exacerbation of the pain when laying flat. Related Data Home Medications Medication Instructions Recorded Confirmed aspirin 81 mg tablet,delayed 81 mg PO DAILY 06/02/22 07/06/22 release (Adult Aspirin Regimen) Allergies Allergy/AdvReac Type Severity Reaction Status Date / Time No Known Allergies Allergy Verified 09/06/22 19:34 Review of Systems Review of Systems: CONSTITUTIONAL: Denies fever, chills, or sweats. EYES: Denies visual changes, redness, or discharge. ENT: Denies rhinorrhea, congestion, sore throat, or otalgia. CARDIOVASCULAR: Denies chest pain, palpitations, or edema. RESPIRATORY: Denies cough or dyspnea. GASTROINTESTINAL: Reports abdominal pain in the right upper quadrant, nausea and vomiting GENITOURINARY: Denies dysuria or hematuria. SKIN: Denies rash or itching. MUSCULOSKELETAL: Denies back pain, joint pain, or myalgia. NEUROLOGIC: Denies headache, numbness, or weakness. [facility] Past Medical History Medical History HERNÁN (generalized anxiety disorder) HTN (hypertension) Osteoarthritis PAF (paroxysmal atrial fibrillation) Tobacco abuse Family History Family History Father Hypertension Family history of coronary artery disease Mother Hypertension Family history of diabetes mellitus in first degree relative Social History Social History Smoking packs per day: 1 Smoking cigarettes per day: 20.0 Years smoked: 40 Smoking pack-years: 40.00 Smoking status: Current every day smoker Tobacco type: cigarettes Alcohol intake: never Substance use: never Substance use type: does not use Gender identity (if verbalized by the patient): Male Sexual Orientation (if Verbalized by the Patient): Straight or Heterosexual Spiritual care concerns: No Exam Narrative: GENERAL: Awake, alert, uncomfortable appearing, ill-appearing HEAD: Normocephalic, atraumatic. EYES: PERRLA and EOMI. patient with scleral icterus bilaterally. ENT: Nares clear, no rhinorrhea or epistaxis. Mucous membranes dry NECK: Supple. CHEST: No respiratory distress, breathing even and non labored HEART: Regular rate, sinus rhythm ABDOMEN: Mildly distended, tender in the right upper quadrant with guarding present, no rebound EXTREMITIES: Normal range of motion. No edema. SKIN: Warm, dry, patient is jaundiced NEURO:No focal deficits. Alert and oriented x3 Course Vital Signs Vital signs: Vital Signs Temperature 37.1 C 09/06/22 19:30 Pulse Rate 84 09/06/22 19:30 Respiratory Rate 16 09/06/22 19:30 Blood Pressure 142/84 H 09/06/22 19:30 Pulse Oximetry 98 09/06/22 19:30 Temperature 37.1 C 09/06/22 19:30 Pulse Rate 94 09/06/22 22:25 Respiratory Rate 27 H 09/06/22 22:25 Blood Pressure 128/55 L 09/06/22 22:25 Pulse Oximetry 100 09/06/22 22:2
[2022-09-06 21:52] LABS: Add Urine Microscopic? YES; Appearance Urine Slightly Cloudy (Clear); Bilirubin Urine 3+ (Negative); Blood Urine Negative (Negative); Color Urine Red (Yellow); Glucose Urine UA Negative (Negative); Ketones Urine Negative (Negative); Leukocyte Esterase Ur Negative LEU/UL (Negative); Nitrate Urine Negative (Negative); Protein Urine Negative (Negative); Specific Grav Ur 1.015 (1.001-1.035); pH Urine 6.5 (5.0-9.0)
[2022-09-06 22:04] LABS: Mucus Urine Rare /lpf; RBC Urine 0-2 /hpf (0-2); Squamous Epithelial Cell Urine Rare /hpf (Few)
[2022-09-06] MEDS: ONDANSETRON INJ 4 MG/2 ML VIAL IV PUSH (22:24)
[2022-09-06] MEDS: MORPHINE SULFATE (*CRX) 4 MG/ML INJ IV PUSH (22:24)
[2022-09-06] MEDS: SODIUM CHLORIDE 0.9% IV 1,000 ML 999 ML IV CONT (22:24)
--- NOTE | 2022-09-06 22:33 | PM.IMHP ---
H&P: HPI History of Present Illness Date/Time: 09/06/22 22:33 Chief Complaint: abdominal pain Narrative: This is an 82-year-old male with past medical history significant for hypertension, paroxysmal atrial fibrillation, generalized anxiety disorder, tobacco dependence, patient is a current everyday smoker of 1 pack a day. Patient presents to the emergency room due to sudden onset of abdominal pain excruciating rated at 10/10 in intensity is localized in the epigastric area in a band like fashion does not radiate to the back patient had 1 episode of vomiting, denies any dyspepsia, has been tolerating his meals well he noticed discoloration of the skin as well of the urine, denies any fevers, rigors, chills, weight loss. Preliminary workup was significant for comprehensive metabolic panel AST/ ALT/ alk phos see 623/638/[address] of abdomen and pelvis was reported as: IMPRESSION: Choledocholithiasis, causing moderate intra and extrahepatic bile duct dilation and gallbladder hydrops. Review of Systems Review of Systems: abdominal pain, vomiting, discoloration of the urine and skin Constitutional: Constitutional: Denies chills, Denies fever(s), Denies night sweats, Reports poor appetite and Denies weight loss Eyes: Eyes: Denies change in vision ENT: Denies dysphagia and Denies odynophagia Cardiovascular: Cardiovascular: Denies chest pain, Denies leg edema, Denies palpitations and Denies dyspnea Respiratory: Respiratory: Denies chest congestion, Denies cough, Denies excessive phlegm production, Denies pain on inspiration, Denies dyspnea, Denies dyspnea on exertion and Denies wheezing Gastrointestinal: Gastrointestinal: Reports abdominal pain ( epigastric area), Denies dyspepsia, Denies heartburn, Denies diarrhea, Denies nausea and Reports vomiting Genitourinary: Genitourinary: Denies dysuria Musculoskeletal: Musculoskeletal: Denies joint swelling, Denies limited range of motion and Denies muscle weakness Integumentary/Breasts: Skin/Breast: Reports change in pigmentation ( jaundice) Neurologic: Denies vertigo, Denies dizziness, Denies focal weakness and Denies Sensory deficit (Neuro) Psychiatric: Psychiatric: Reports no additional psychiatric complaints and Reports as per HPI Endocrine: Endocrine: Denies cold intolerance, Denies flushing, Denies heat intolerance, Denies polyphagia, Denies polydipsia and Denies palpitations Hematologic/Lymphatic: Hematologic/Lymphatic: Reports no additional hematologic/lymphatic complaints and Reports as per HPI Allergic/Immunologic: Allergic/Immunologic: Reports no additional allergic/immunologic complaints and Reports as per HPI [facility] Past Medical History Medical History (Updated 09/07/22 @ 00:38 by Alexandru Mcmanus MD) HERNÁN (generalized anxiety disorder) HTN (hypertension) Osteoarthritis PAF (paroxysmal atrial fibrillation) Tobacco abuse Family History Family History Father Hypertension Family history of coronary artery disease Mother Hypertension Family history of diabetes mellitus in first degree relative Social History Social History Smoking packs per day: 1 Smoking cigarettes per day: 20.0 Years smoked: 40 Smoking pack-years: 40.00 Smoking status: Current every day smoker Tobacco type: cigarettes Alcohol intake: never Substance use: never Substance use type: does not use Lack of Transportation: No Lack of Food: Never True Current Housing: I Have Housing Concerned About Future Housing: No Difficulty Paying Gas/Electric Bills: No Difficulty Paying for Meds: No Currently Unemployed: No Education: High School Diploma/GED Difficulty w/ Childcare or Family Care: No Gender identity (if verbalized by the patient): Male Sexual Orientation (if Verbalized by the Patient): Straight or Heterosexual Spiritual care c
--- NOTE | 2022-09-06 22:42 | ECG_ITS ---
Measurements Intervals [place] Rate: 91 P: 9 PA: 157 QRS: -21 QRSD: 97 T: 28 QT: 328 QTc: 405 Interpretive Statements SINUS RHYTHM EARLY PRECORDIAL R/S TRANSITION BASELINE ARTIFACT- I, II, III, AVR, AVL, AVF, V5-V6 BORDERLINE ECG NO PREVIOUS ECG AVAILABLE FOR COMPARISON Electronically Signed On 09-06-2022 23:24:25 [employer] by Bro Hannah D.O.
[2022-09-06 22:59] LABS: SARS-CoV-2 RNA PCR Negative
[2022-09-06] MEDS: HYDROmorphone HCL INJ (*CRX) 1 MG/ML SYR 0.5 MG IV PUSH (23:08)
[2022-09-06 23:11] LABS: Reflex Lactic Acid Yes or No Add Lactic
[2022-09-07] VITALS (12 sets, daily range): BP systolic 99–116; BP diastolic 47–68; PULSE 56–78; RESP 14–21; TEMP 36.2–36.8; O2SAT 98–100; BMI 22.1
[2022-09-07] MEDS: LACTATED RINGERS 1,000 ML 125 ML IV CONT ×3 (00:50→22:13)
--- NOTE | 2022-09-07 00:59 | ADMGEN ---
This patient, Alec Ortiz, was admitted to 3 [facility] Surg Room 321-02 at 0001. Patient/family oriented to hospital policies and general routines including ID bracelet, bed and alarms, visiting hours, pain management, procedures, bathroom and other care routines, personal items, smoking policy, room service/diet, and visiting hours. Information on how to activate the Rapid Response Team has been discussed. Patient/Family are encouraged to report perceived risks to care and to ask questions if they do not understand what they are told or what they should do.
[2022-09-07 02:01] LABS: Basophils Percent Auto 0.3 % (0.2-1.2); Hemoglobin 11.1 g/dL (14.0-18.0); Immature Granulocyte Absolute 0.12 K/mm3 (0.00-0.031); Immature Granulocyte Percent A 0.8 % (0-0.5); Lymphocytes Absolute Auto 0.39 K/mm3 (0.9-3.2); Lymphocytes Percent Auto 2.7 % (18.3-44.2); Mean Corpuscular HGB Conc 34.7 g/dl (32-36); Mean Corpuscular Hemoglobin 31.4 pg (26-34); Mean Corpuscular Volume 90.4 fl (80-100); Mean Platelet Volume 11.3 fl (7.4-10.4); Monocytes Absolute Auto 1.1 K/mm3 (0.1-0.6); Monocytes Percent Auto 7.6 % (2.6-8.5); Neutrophils Percent Auto 88.6 % (45.5-73.1); Platelet Count Result 196 k/mm3 (150-375); Red Blood Count 3.54 M/mm3 (4.6-6.20); Red Cell Distribution Width 14.2 % (11.5-14.5); White Blood Count 14.7 K/mm3 (4.5-10.0)
[2022-09-07 02:16] LABS: Lactic Acid 2.1 mmol/L (0.7-2.0)
[2022-09-07 05:21] LABS: Alanine Aminotransferase 456 U/L (6-50); Albumin Level 3.5 g/dL (3.5-5.1); Alkaline Phosphatase 226 U/L (38-126); Anion Gap 9 mmol/L (8-16); Aspartate Amino Transferase 305 U/L (17-59); Bilirubin,Total 7.7 mg/dL (0.2-1.3); Blood Urea Nitrogen 20 mg/dL (9-20); Calcium 9.1 mg/dL (8.4-10.2); Carbon Dioxide 26 mmol/L (22-30); Chloride 104 mmol/L (98-107); Estimated CRCL calculation 35 ml/min; Estimated Glomerular Filt Rate 45; Glucose 134 mg/dL (65-110); Lipase 37 U/L (23-300); Potassium 3.2 mmol/L (3.4-5.0); Sodium 139 mmol/L (137-145)
[2022-09-07 09:37] LABS: Hepatitis B Surface Antigen Negative (Negative)
[2022-09-07 09:43] LABS: HAV RESULT Negative (Negative); Hepatitis B Core IgM Result Negative (Negative)
[2022-09-07 09:55] LABS: Hepatitis C Virus Antibody Negative (Negative)
--- NOTE | 2022-09-07 10:01 | PM.CNGS ---
Assessment and Plan Assessment and plan (1) Choledocholithiasis: Code(s): K80.50 - Calculus of bile duct without cholangitis or cholecystitis without obstruction Status: Acute Assessment and Plan: CT reviewed and discussed with the patient in detail. This showed cholelithiasis, gallbladder hydrops, and a 5 mm calcification in the distal common duct suggestive of choledocholithiasis with intra and extrahepatic bile duct dilation. He also presented with elevated LFTs with a total bilirubin of 7.8. GI has been consulted and is planning an ERCP today. His WBC count and lactic acid were also elevated. Will resume IV Zosyn for cholangitis. I discussed with the patient that he will likely eventually require a cholecystectomy if he is medically cleared, but we will await the ERCP results and see how he tolerates this procedure before planning an optimal time for surgery. (2) Transaminitis: Code(s): R74.01 - Elevation of levels of liver transaminase levels Status: Acute Assessment and Plan: LFTs elevated with total bilirubin 7.[address] findings of possible common duct stone. Hepatitis panel negative. This is likely related to choledocholithiasis. GI consulted and planning ERCP today. (3) Severe sepsis: Code(s): A41.9 - Sepsis, unspecified organism; R65.20 - Severe sepsis without septic shock Status: Acute Assessment and Plan: Leukocytosis and elevated lactic acid on admission and mention of tachycardia on the ER note, which would meet sepsis criteria. Blood cx pending. One dose of IV Zosyn was given in the ER. Will start scheduled IV Zosyn this morning for possible cholangitis. Continue IV fluids, monitor labs. (4) HTN (hypertension): Qualifiers: Hypertension type: essential hypertension Qualified Code(s): I10 - Essential (primary) hypertension Code(s): I10 - Essential (primary) hypertension Status: Acute Assessment and Plan: Blood pressure actually slightly low this morning 102/47. Antihypertensives were restarted but not given this morning since NPO for ERCP. Management per Hospitalist. (5) Tobacco abuse: Code(s): Z72.0 - Tobacco use Status: Acute Assessment and Plan: Increases risks of surgery. Encouraged cessation. (6) Hematoma of right kidney: Code(s): S37.011A - Minor contusion of right kidney, initial encounter Status: Acute Assessment and Plan: Found in 2019 and followed by Urology, appears to be resolving and has not required intervention. Plan I have discussed the patient's case and plan of care with Dr. Patricia. Thank you for allowing us to see the patient in consultation and we will continue to follow along with you. History of Present Illness Consult details Consult date: 09/07/22 Reason for consult: gallstones (choledocholithiasis, elevated LFTs) Requesting physician: Mitzy De Leon MD Narrative: This is an 82-year-old man with hypertension and tobacco abuse, who presented to the emergency department last night with complaints of upper abdominal pain. He initially noticed pain when laying down for bed 2 nights ago. He cannot recall what he ate for dinner that day. He felt that when he was lying flat, he felt very bloated and full with severe upper abdominal pain. He was up all night due to the pain. The next day, his abdominal pain remained the same. Initially he thought this was related to gas, therefore he took Tums, which did not help his pain. He also tried drinking prune juice in case he was constipated, and subsequently had multiple loose stools without relief. He had never had this pain before in the past. He reports additionally noticing dark urine yesterday. His pain persisted, therefore he drove himself into the ER last night for evaluation. He denies any nausea or vomiting until getting to the ER, where he vomited [address] scan of the abdomen and pelvis showed choledocholith
--- NOTE | 2022-09-07 10:16 | WPDANESEPPF ---
Anes - Initial Pre Proc Eval Procedure: Operation Date: 09/07/22 15:15 Proposed Procedures p Endoscopic Retro Cholangiopancreatogram - Tony Tejeda MD Date/Time: 09/07/22 10:16 Surgeon: Ji Romeo MD Pre Op Diagnosis: Choledocolithiasis,Sepsis,Transaminitis Patient Data Age: 82 Gender: M Height: 1.78 m Weight: 70 kg Last Vital Signs Temp 36.3 C L 09/07/22 06:00 Pulse 56 L 09/07/22 06:00 Resp 18 09/07/22 06:00 BP 102/47 L 09/07/22 06:00 Pulse Ox 98 09/07/22 06:00 Allergies Allergy/AdvReac Type Severity Reaction Status Date / Time No Known Allergies Allergy Verified 09/07/22 10:21 Home Medications Medication Instructions Recorded Confirmed Type amlodipine 5 mg tablet 5 mg PO BID #180 tabs 06/02/22 09/07/22 Rx aspirin 81 mg tablet,delayed 81 mg PO DAILY 06/02/22 09/07/22 History release (Adult Aspirin Regimen) chlorthalidone 25 mg tablet 25 mg PO DAILY #90 tabs 06/02/22 09/07/22 Rx potassium chloride 20 mEq 20 meq PO TID #270 tabs 06/02/22 09/07/22 Rx tablet,extended release spironolactone 50 mg tablet 50 mg PO DAILY #90 tabs 06/02/22 09/07/22 Rx lisinopril 40 mg tablet 40 mg PO DAILY #90 tabs 08/25/22 09/07/22 Rx quinapril 20 mg tablet 20 mg PO BID 09/07/22 09/07/22 History Laboratory Tests 09/06/22 09/06/22 09/06/22 20:05 20:05 20:05 WBC 13.6 K/mm3 H K/mm3 (4.5-10.0) RBC 4.43 M/mm3 L M/mm3 (4.6-6.20) Hgb 13.8 g/dL L g/dL (14.0-18.0) Hct 40.1 % L % (42.0-52.0) MCV 90.5 fl fl (80-100) MCH 31.2 pg pg (26-34) MCHC 34.4 g/dl g/dl (32-36) RDW 14.2 % % (11.5-14.5) Plt Count 259 k/mm3 k/mm3 (150-375) MPV 10.9 fl H fl (7.4-10.4) Immature Gran % (Auto) 0.5 % % (0-0.5) Neut % (Auto) 89.5 % H % (45.5-73.1) Lymph % (Auto) 6.1 % L % (18.3-44.2) [place] % (Auto) 3.3 % % (2.6-8.5) Eos % (Auto) 0.2 % % (0-4.4) Baso % (Auto) 0.4 % % (0.2-1.2) Lymph # (Auto) 0.83 K/mm3 L K/mm3 (0.9-3.2) [place] # (Auto) 0.5 K/mm3 K/mm3 (0.1-0.6) Eos # (Auto) 0.0 K/mm3 K/mm3 (0-0.3) Baso # (Auto) 0.1 K/mm3 K/mm3 (0.0-0.1) Abs Immat Gran (auto) 0.07 K/mm3 H K/mm3 (0.00-0.031) Absolute Neuts (auto) 12.1 K/mm3 H K/mm3 (1.3-6.7) Absolute Nucleated RBC 0.0 K/mm3 K/mm3 (0.0-0.012) Nucleated RBC % 0.0 % % (0.0-0.2) Sodium 138 mmol/L mmol/L (137-145) Potassium 3.9 mmol/L mmol/L (3.4-5.0) Chloride 100 mmol/L mmol/L (98-107) Carbon Dioxide 28 mmol/L mmol/L (22-30) Anion Gap 10 mmol/L mmol/L (8-16) BUN 19 mg/dL mg/dL (9-20) Creatinine 1.20 mg/dL mg/dL (0.7-1.3) Estim Creat Clear Calc 43 ml/min ml/min Estimated GFR 58 L (59 - ) Glucose 128 mg/dL H mg/dL (65-110) Lactic Acid 3.4 mmol/L H mmol/L (0.7-2.0) Calcium 10.1 mg/dL mg/dL (8.4-10.2) Magnesium Total Bilirubin 7.8 mg/dL H mg/dL (0.2-1.3) AST 623 U/L H U/L (17-59) ALT 638 U/L H U/L (6-50) Alkaline Phosphatase 273 U/L H U/L (38-126) Total Protein 8.0 g/dL g/dL (6.3-8.2) Albumin 4.6 g/dL g/dL (3.5-5.1) Lipase 72 U/L U/L (23-300) Urine Color Urine Appearance Urine pH Ur Specific [place] Urine Protein Urine Glucose (UA) Urine Ketones Ur Blood (Man) Urine Nitrate Urine Bilirubin Urine Urobilinogen Leukocyte Esterase Rfl Urine RBC Urine WBC Ur Squamous Epith Cells Hyaline Casts Urine Mucus Hepatitis A IgM Ab Hep Bs An
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
[2022-09-07] MEDS: LACTATED RINGERS 1,000 ML 150 ML IV CONT (10:30)
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
[2022-09-07 11:54] LABS: Magnesium 1.6 mg/dL (1.6-2.3)
[2022-09-07] MEDS: POTASSIUM CHLORIDE 20 MEQ TABLET.ER PO ×2 (12:45→18:03)
[2022-09-07] MEDS: amLODIPine BESYLATE 5 MG TABLET PO (18:03)
[2022-09-08] VITALS (12 sets, daily range): BP systolic 100–130; BP diastolic 49–63; PULSE 50–79; RESP 14–46; TEMP 36.3–37; O2SAT 94–100
[2022-09-08 06:34] LABS: Alanine Aminotransferase 277 U/L (6-50); Alkaline Phosphatase 173 U/L (38-126); Anion Gap 7 mmol/L (8-16); Aspartate Amino Transferase 86 U/L (17-59); Bilirubin,Total 4.8 mg/dL (0.2-1.3); Blood Urea Nitrogen 20 mg/dL (9-20); Calcium 8.3 mg/dL (8.4-10.2); Carbon Dioxide 27 mmol/L (22-30); Chloride 104 mmol/L (98-107); Estimated CRCL calculation 37 ml/min; Estimated Glomerular Filt Rate 49; Glucose 106 mg/dL (65-110); Potassium 3.3 mmol/L (3.4-5.0); Sodium 138 mmol/L (137-145)
[2022-09-08] MEDS: LACTATED RINGERS 1,000 ML 125 ML IV CONT (07:24)
--- NOTE | 2022-09-08 11:00 | PC.NURSE ---
To OR via bed.
[2022-09-08] MEDS: LACTATED RINGERS 1,000 ML 30 ML IV CONT (11:10)
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
--- NOTE | 2022-09-08 11:32 | WPDHPUPDATE1 ---
History and Physical Update Update Date/Time: 09/08/22 11:32 History and Physical has been reviewed, including an updated exam of the patient. There are NO changes in the patient's condition. Risks, benefits, and alternatives have been discussed and questions answered. Patient agrees to proceed with procedure.
--- NOTE | 2022-09-08 12:44 | PM.IMPN ---
Progress Note: A&P Assessment and Plan (1) Choledocholithiasis: Code(s): K80.50 - Calculus of bile duct without cholangitis or cholecystitis without obstruction Status: Acute Assessment and Plan: NPO except for ice chips GI consulted, plan for ERCP General surgery consulted (2) Transaminitis: Code(s): R74.01 - Elevation of levels of liver transaminase levels Status: Acute Assessment and Plan: likely secondary to cholestasis continue to trend transaminases (3) Tobacco abuse: Code(s): Z72.0 - Tobacco use Status: Acute Assessment and Plan: nicotine patch as needed (4) HTN (hypertension): Qualifiers: Hypertension type: essential hypertension Qualified Code(s): I10 - Essential (primary) hypertension Code(s): I10 - Essential (primary) hypertension Status: Acute Assessment and Plan: restart home meds as needed (5) PAF (paroxysmal atrial fibrillation): Code(s): I48.0 - Paroxysmal atrial fibrillation Status: Acute Assessment and Plan: rate controlled Subjective Date/time seen: 09/08/22 12:44 no complaints Exam Narrative: patient is laying in a stretcher Const: General: comfortable, no acute distress, well developed, alert, awake, average body habitus and thin Nutritional Appearance: average body habitus and thin Orientation/consciousness: patient oriented x3 HENMT: Head: normal to inspection, normocephalic and atraumatic Ears: hearing grossly normal bilaterally Face/Nose/Sinus: normal facial exam Face and sinus: normal facial exam Eyes: General: appearance normal, both eyes and all related structures Sclera: scleral abnormality bilateral other ( icterus) Pupils: Equal, round and reactive pupils present EOM: EOMs intact bilaterally Neck: Neck: full ROM, no lymphadenopathy and no JVD Thyroid: thyroid normal Lymphatic: no lymphadenopathy noted Resp: Effort & Inspection: normal respiratory effort and able to speak in complete sentences Auscultation: clear to auscultation bilaterally Cardio: Jugular venous distension: no JVD Rate: regular rate Rhythm: regular rhythm Heart sounds: S1 normal heart sound present and S2 normal heart sound present GI: Inspection: normal to inspection Auscultation: normal bowel sounds : General: Yes deferred Skin: Rashes: no rashes Wounds: no wounds Other: jaundiced Neuro: General: patient oriented x3, CN's II-XI intact bilaterally and Unable to assess gait Cranial nerves: Yes CN's II-XII intact bilaterally and Yes Equal, round and reactive pupils present Cognition (Neuro): normal cognition Speech: normal speech Gait exam (Neuro): Normal gait present and Unable to assess gait Motor exam (neuro): 5/5 motor strength present throughout Sensory Exam: No Sensory deficit (Neuro) Extrem: General: normal to inspection, full ROM, no joint enlargement and no pedal edema Objective Data Vital Signs Vital Signs: Vital Signs - 24 hr 09/07/22 15:13 09/07/22 20:00 09/07/22 22:00 Temperature 97.9 F 97.1 F L Pulse Rate 58 L 63 Respiratory Rate 16 14 Blood Pressure 99/56 L 115/53 L Pulse Oximetry 99 99 100 Oxygen Delivery Room Air 09/08/22 06:00 09/08/22 08:20 09/08/22 08:20 Temperature 97.5 F L Pulse Rate 54 L 50 L Respiratory Rate 14 46 H Blood Pressure 100/52 L 106/58 L Pulse Oximetry 98 97 Oxygen Delivery Room Air 09/08/22 11:12 Temperature 98.6 F Pulse Rate 53 L Respiratory Rate 20 Blood Pressure 118/51 L Pulse Oximetry 98 Oxygen Delivery Room Air Intake/Output Intake/Output: Intake & Output 09/05/22 09/06/22 09/07/22 09/08/22 23:59 23:59 23:59 23:59 Intake Total 1000 2940 1700 Output Total 600 Balance 1000 2940 1100 Meds/Results Medications: Active Medications Generic Name Dose Route Start Last Admin Trade Name Freq PRN Reason Stop Dose Admin Amlodipine Besylate 5 mg 09/07/22 09:00 09/07/22 18
[2022-09-08] MEDS: LIDO 1%/EPINEPHRINE/PF 1:200,000 30 ML VIAL XX (13:01)
--- NOTE | 2022-09-08 13:11 | W.PM.PROC2 ---
Procedure Note - Detailed Date of Procedure 09/08/22 Pre-op Diagnosis Choledocolithiasis,Sepsis,Transaminitis Post-op Diagnosis Same Procedure Performed Laparoscopic cholecystectomy Surgeon Hudson Patricia, DO Anesthesia General and Local (0.5% bupivacaine) Indications This is an 82-year-old man who presented to the emergency department 2 days ago with complaints of upper abdominal pain with nausea and vomiting. He was found to have signs of sepsis and cholangitis. His CT showed evidence of cholelithiasis and choledocholithiasis. He underwent ERCP yesterday. Discussions were made with the patient about treatment options and decision was made to proceed with laparoscopic cholecystectomy, possible open. Findings Laparoscopic cholecystectomy was performed. The gallbladder appeared somewhat dilated and edematous. There were multiple gallstones within the gallbladder lumen. The cystic duct appeared normal in size. There were no pericholecystic adhesions. The gallbladder was removed and sent to the lab for pathology. Description of Procedure Procedure as well as risks, benefits, and alternatives were discussed with patient. Written consent was obtained and placed in chart prior to procedure. The patient was brought back to surgical suite. Patient was placed in supine position on operating table. Time-out was done to confirm patient and procedure. Patient was then intubated by the anesthesia department. Abdomen was prepped and draped in sterile fashion using chlorhexidine prep. 0.5% bupivacaine with epinephrine was infiltrated at each site of incision. An 11 millimeter vertical incision was made at the inferior portion of the umbilicus using a 15 blade scalpel. Blunt dissection was carried down to the linea alba. The linea alba was then incised using a 15 blade scalpel. The peritoneum was then bluntly entered. An 11 millimeter trocar was inserted and carbon dioxide insufflation was used to create a pneumoperitoneum. The camera was inserted and the abdomen was inspected. The patient was placed in reverse Trendelenberg position and rotated slightly to the left. A 5 millimeter incision was made in the epigastric region, and a 5 millimeter trocar was inserted under direct visualization. Two 5 millimeter incisions were made in the right upper quadrant, and two 5 millimeter trocars were inserted under direct visualization. The gallbladder was identified and grasped at the fundus and retracted superiorly. It was then grasped at the infundibulum retracted laterally. Careful dissection around the neck of the gallbladder was performed using blunt dissection with a [place] grasper and hook electrocautery. The cystic duct was identified, and a window was created behind it. The cystic artery was also identified and a window was created behind it. The critical view of safety was identified, visualizing the cystic duct running directly into the neck of the gallbladder, and the cystic artery running directly into the wall of the gallbladder. A 5 millimeter clip commercial pilot was then used to place 2 clips proximally and 1 clip distally on both the cystic duct and cystic artery. They were then both transected using endoscopic scissors. Once safely away from the maria antonia hepatitis, the gallbladder was dissected free from the liver bed using hook electrocautery. Hemostasis was achieved along the way. The gallbladder was removed completely and then removed through the umbilical port. The liver bed was then inspected. Hemostasis appeared adequate, and our clips appeared secure. The area was gently irrigated with sterile saline. No other abnormalities were seen. The patient was flattened out in bed, and 1 final inspection was made around the abdominal cavity. The ports were then removed under direct visualization, the camera was removed, and the pneumoperitoneum was released. The fascia of the umbilical incision was approximated using an 0 Vicryl [id number] suture.
--- NOTE | 2022-09-08 13:46 | SUR.PHASEI ---
1346: Simple mask removed.
--- NOTE | 2022-09-08 14:15 | PC.NURSE ---
Back from OR via bed.
--- NOTE | 2022-09-08 15:12 | WPDGIPROGNO ---
Progress Note: A&P Assessment and Plan (1) Cholangitis: Code(s): K83.09 - Other cholangitis Status: Acute Assessment and Plan: treated successfully with ercp, I performed sphincterotomy then removed stone with pus on iv abx and just had cholecystectomy doing better (2) Bacteremia: Code(s): R78.81 - Bacteremia Status: Acute Assessment and Plan: + blood cultures, pending final ID on antibiotics (3) Severe sepsis: Code(s): A41.9 - Sepsis, unspecified organism; R65.20 - Severe sepsis without septic shock Status: Acute Assessment and Plan: improved (4) Choledocholithiasis: Code(s): K80.50 - Calculus of bile duct without cholangitis or cholecystitis without obstruction Status: Acute Assessment and Plan: treated with ercp (5) Upper abdominal pain: Code(s): R10.10 - Upper abdominal pain, unspecified Status: Acute (6) Transaminitis: Code(s): R74.01 - Elevation of levels of liver transaminase levels Status: Acute Assessment and Plan: trending down Subjective Date/time seen: 09/08/22 15:12 Interval history: ercp yesterday with removal of large stone and pus, today lap savana and doing much better Review of Systems Review of Systems: All systems reviewed & are unremarkable except as noted in HPI and below Exam Const: General: comfortable and no acute distress HENMT: Face/Nose/Sinus: Normal nares present Eyes: General: appearance normal, both eyes and all related structures Other: less icteric Neck: Neck: no JVD Resp: Auscultation: clear to auscultation bilaterally Cardio: Rate: regular rate Rhythm: regular rhythm GI: Inspection: non-distended GI Palp: Yes Soft to palpation Auscultation: normal bowel sounds Other: expected minimal pain from recent surgery, no rebound Skin: Other: less icteric Neuro: General: gait normal Speech: normal speech Extrem: General: normal to inspection Psych: Mental Status: mental status grossly normal Objective Data Vital Signs Vital Signs: Vital Signs - 24 hr 09/07/22 15:13 09/07/22 20:00 09/07/22 22:00 Temperature 97.9 F 97.1 F L Pulse Rate 58 L 63 Respiratory Rate 16 14 Blood Pressure 99/56 L 115/53 L Pulse Oximetry 99 99 100 Oxygen Delivery Room Air Oxygen Flow Rate 09/08/22 06:00 09/08/22 08:20 09/08/22 08:20 Temperature 97.5 F L Pulse Rate 54 L 50 L Respiratory Rate 14 46 H Blood Pressure 100/52 L 106/58 L Pulse Oximetry 98 97 Oxygen Delivery Room Air Oxygen Flow Rate 09/08/22 11:12 09/08/22 13:11 09/08/22 13:25 Temperature 98.6 F 98.5 F Pulse Rate 53 L 79 63 Respiratory Rate 20 17 15 Blood Pressure 118/51 L 130/56 L 113/49 L Pulse Oximetry 98 100 100 Oxygen Delivery Room Air Simple Face Mask Simple Face Mask Oxygen Flow Rate 8 8 09/08/22 13:40 09/08/22 13:55 09/08/22 14:05 Temperature 97.5 F L Pulse Rate 62 58 L 56 L Respiratory Rate 18 14 16 Blood Pressure 113/54 L 119/56 L 108/57 L Pulse Oximetry 100 98 97 Oxygen Delivery Simple Face Mask Room Air Oxygen Flow Rate 8 09/08/22 14:20 Temperature 97.5 F L Pulse Rate 52 L Respiratory Rate 16 Blood Pressure 111/61 Pulse Oximetry 94 Oxygen Delivery Oxygen Flow Rate Intake/Output Intake/Output: Intake & Output 09/05/22 09/06/22 09/07/22 09/08/22 23:59 23:59 23:59 23:59 Intake Total 1000 2940 1900 Output Total 1200 Balance 1000 2940 700 Meds/Results Medications: Active Medications Generic Name Dose Route Start Last Admin Trade Name Freq PRN Reason Stop Dose Admin Hydrocodone Bitart/Acetaminophen 1 tab 09/08/22 14:05 Hydrocodone/Acetaminophen (*Crx) 5-325 Mg Tablet PO Q4H PRN Pain Rated 4-6 Hydrocodone Bitart/Acetaminophen 1 tab 09/08/22 14:05 Hydrocodone/Acetaminophen (*Crx) 7.5-325 Mg Tablet PO Q4H PRN Pain Rated 7-10 Amlodipine Besylate 5 mg 09/07/22 09:00
[2022-09-08] MEDS: SPIRONOLACTONE 50 MG TABLET PO (15:55)
[2022-09-08] MEDS: CHLORTHALIDONE 25 MG TABLET PO (15:55)
[2022-09-08] MEDS: POTASSIUM CHLORIDE 20 MEQ TABLET PO (15:55)
[2022-09-08] MEDS: POTASSIUM CHLORIDE 20 MEQ TABLET.ER PO ×2 (15:55→17:38)
[2022-09-08] MEDS: ASPIRIN 81 MG ENTERIC TABLET PO (15:58)
[2022-09-09] VITALS (7 sets, daily range): BP systolic 115–139; BP diastolic 46–73; PULSE 47–57; RESP 14–18; TEMP 36.3–36.5; O2SAT 97–100
[2022-09-09 06:53] LABS: Hemoglobin 9.9 g/dL (14.0-18.0); Mean Corpuscular Hemoglobin 30.9 pg (26-34); Mean Corpuscular Volume 93.8 fl (80-100); Mean Platelet Volume 11.4 fl (7.4-10.4); Platelet Count Result 163 k/mm3 (150-375); Red Cell Distribution Width 14.5 % (11.5-14.5); White Blood Count 6.4 K/mm3 (4.5-10.0)
[2022-09-09 07:04] LABS: Alanine Aminotransferase 190 U/L (6-50); Albumin Level 3.1 g/dL (3.5-5.1); Alkaline Phosphatase 152 U/L (38-126); Anion Gap 4 mmol/L (8-16); Aspartate Amino Transferase 41 U/L (17-59); Bilirubin,Total 2.4 mg/dL (0.2-1.3); Blood Urea Nitrogen 17 mg/dL (9-20); Calcium 8.2 mg/dL (8.4-10.2); Carbon Dioxide 28 mmol/L (22-30); Chloride 107 mmol/L (98-107); Estimated CRCL calculation 40 ml/min; Estimated Glomerular Filt Rate 53; Glucose 96 mg/dL (65-110); Sodium 139 mmol/L (137-145)
[2022-09-09] MEDS: ASPIRIN 81 MG ENTERIC TABLET PO (09:02)
[2022-09-09] MEDS: POTASSIUM CHLORIDE 20 MEQ TABLET.ER PO ×3 (09:02→17:01)
[2022-09-09] MEDS: CHLORTHALIDONE 25 MG TABLET PO (09:02)
[2022-09-09] MEDS: SPIRONOLACTONE 50 MG TABLET PO (09:03)
[2022-09-09] MEDS: POTASSIUM CHLORIDE 20 MEQ TABLET 40 MEQ PO (10:24)
--- NOTE | 2022-09-09 10:41 | PM.PNGS ---
Progress Note: A&P Assessment and Plan (1) Choledocholithiasis: Code(s): K80.50 - Calculus of bile duct without cholangitis or cholecystitis without obstruction Status: Acute Assessment and Plan: POD#1 laparoscopic cholecystectomy and doing well. Tolerating a low fat diet. LFTs improving. Pain well-controlled. Okay to discharge the patient from a surgical standpoint. F/u in [address] Patricia. Continue low fat diet. Continue antibiotics per Hospitalist. (2) Severe sepsis: Code(s): A41.9 - Sepsis, unspecified organism; R65.20 - Severe sepsis without septic shock Status: Acute Assessment and Plan: Resolving. WBC trending down and clinically improving. Preliminary blood cx growing gram negative bacilli. Currently on IV Zosyn, further management of antibiotics for bacteremia/cholangitis per Hospitalist. (3) Transaminitis: Code(s): R74.01 - Elevation of levels of liver transaminase levels Status: Acute Assessment and Plan: Improving, LFTs continue to trend down today. (4) HTN (hypertension): Qualifiers: Hypertension type: essential hypertension Qualified Code(s): I10 - Essential (primary) hypertension Code(s): I10 - Essential (primary) hypertension Status: Acute (5) Tobacco abuse: Code(s): Z72.0 - Tobacco use Status: Acute Plan I have discussed the patient's case and plan of care with Dr. Patricia. Subjective Subjective Date/Time Seen: 09/09/22 10:41 Patient reports: no new complaints, feels better, tolerating a regular diet (low fat), voiding w/o difficulty, no flatus and afebrile Interval history: Patient seen and examined this morning. He reports feeling ?great? today. He denies any abdominal pain. He reports some soreness at the incisions with coughing or certain movements, but overall it is tolerable and he has not required any analgesics. He is tolerating a low-fat diet without any nausea or vomiting. He feels his urine has lightened in color. He is tolerating activity and eager to go home. No other complaints at this time. Review of Systems Review of Systems: All systems reviewed & are unremarkable except as noted in HPI and below Exam Const: General: comfortable, no acute distress and awake Orientation/consciousness: patient oriented x3 GI: Inspection: non-distended and incision (incisions dry and intact) GI Palp: Yes Soft to palpation and No Tenderness to palpation present (GI) Auscultation: normal bowel sounds Neuro: General: moves all extremities and no focal motor deficits Extrem: General: no calf tenderness and no edema Psych: Mental Status: mental status grossly normal Insight: Good insight present (Psych) Objective Data Vital Signs Vital Signs: Vital Signs - 24 hr 09/08/22 11:12 09/08/22 13:11 09/08/22 13:25 Temperature 98.6 F 98.5 F Pulse Rate 53 L 79 63 Respiratory Rate 20 17 15 Blood Pressure 118/51 L 130/56 L 113/49 L Pulse Oximetry 98 100 100 Oxygen Delivery Room Air Simple Face Mask Simple Face Mask Oxygen Flow Rate 8 8 09/08/22 13:40 09/08/22 13:55 09/08/22 14:15 Temperature 97.5 F L Pulse Rate 62 58 L 56 L Respiratory Rate 18 14 16 Blood Pressure 113/54 L 119/56 L 108/57 L Pulse Oximetry 100 98 97 Oxygen Delivery Simple Face Mask Room Air Oxygen Flow Rate 8 09/08/22 14:30 09/08/22 15:00 09/08/22 16:00 Temperature 97.5 F L 97.6 F 98.1 F Pulse Rate 52 L 52 L 57 L Respiratory Rate 16 16 16 Blood Pressure 111/61 122/59 L 113/63 Pulse Oximetry 94 94 100 Oxygen Delivery Oxygen Flow Rate 09/08/22 20:00 09/09/22 00:00 09/09/22 04:00 Temperature 97.4 F L 97.3 F L 97.5 F L Pulse Rate 58 L 57 L 53 L Respiratory Rate 16 16 14 Blood Pressure 111/53 L 127/46 L 115/54 L Pulse Oximetry 99 99 97 Oxygen Delivery Oxygen Flow Rate 09/09/22 06:00 Temperature 97.5 F L Pulse Rate 53 L Respiratory Rate 14 Blood Pressure 115/54 L Pulse Oximetry 97
--- NOTE | 2022-09-09 11:41 | PM.IMPN ---
Progress Note: A&P Assessment and Plan (1) Choledocholithiasis: Code(s): K80.50 - Calculus of bile duct without cholangitis or cholecystitis without obstruction Status: Acute Assessment and Plan: doing well, tolerating diet. Status post cholecystectomy. Drain in place. Await culture results to transition to oral that he can likely be discharged (2) Transaminitis: Code(s): R74.01 - Elevation of levels of liver transaminase levels Status: Acute Assessment and Plan: improved (3) Tobacco abuse: Code(s): Z72.0 - Tobacco use Status: Acute Assessment and Plan: nicotine patch as needed (4) HTN (hypertension): Qualifiers: Hypertension type: essential hypertension Qualified Code(s): I10 - Essential (primary) hypertension Code(s): I10 - Essential (primary) hypertension Status: Acute Assessment and Plan: restart home meds as needed (5) PAF (paroxysmal atrial fibrillation): Code(s): I48.0 - Paroxysmal atrial fibrillation Status: Acute Assessment and Plan: rate controlled Subjective Date/time seen: 09/09/22 11:41 doing well Exam Narrative: patient is laying in a stretcher Const: General: comfortable, no acute distress, well developed, alert, awake, average body habitus and thin Nutritional Appearance: average body habitus and thin Orientation/consciousness: patient oriented x3 HENMT: Head: normal to inspection, normocephalic and atraumatic Ears: hearing grossly normal bilaterally Face/Nose/Sinus: normal facial exam Face and sinus: normal facial exam Eyes: General: appearance normal, both eyes and all related structures Sclera: scleral abnormality bilateral other ( icterus) Pupils: Equal, round and reactive pupils present EOM: EOMs intact bilaterally Neck: Neck: full ROM, no lymphadenopathy and no JVD Thyroid: thyroid normal Lymphatic: no lymphadenopathy noted Resp: Effort & Inspection: normal respiratory effort and able to speak in complete sentences Auscultation: clear to auscultation bilaterally Cardio: Jugular venous distension: no JVD Rate: regular rate Rhythm: regular rhythm Heart sounds: S1 normal heart sound present and S2 normal heart sound present GI: Inspection: normal to inspection Auscultation: normal bowel sounds : General: Yes deferred Skin: Rashes: no rashes Wounds: no wounds Other: jaundiced Neuro: General: patient oriented x3, CN's II-XI intact bilaterally and Unable to assess gait Cranial nerves: Yes CN's II-XII intact bilaterally and Yes Equal, round and reactive pupils present Cognition (Neuro): normal cognition Speech: normal speech Gait exam (Neuro): Normal gait present and Unable to assess gait Motor exam (neuro): 5/5 motor strength present throughout Sensory Exam: No Sensory deficit (Neuro) Extrem: General: normal to inspection, full ROM, no joint enlargement and no pedal edema Objective Data Vital Signs Vital Signs: Vital Signs - 24 hr 09/08/22 13:11 09/08/22 13:25 09/08/22 13:40 Temperature 98.5 F Pulse Rate 79 63 62 Respiratory Rate 17 15 18 Blood Pressure 130/56 L 113/49 L 113/54 L Pulse Oximetry 100 100 100 Oxygen Delivery Simple Face Mask Simple Face Mask Simple Face Mask Oxygen Flow Rate 8 8 8 09/08/22 13:55 09/08/22 14:15 09/08/22 14:30 Temperature 97.5 F L 97.5 F L Pulse Rate 58 L 56 L 52 L Respiratory Rate 14 16 16 Blood Pressure 119/56 L 108/57 L 111/61 Pulse Oximetry 98 97 94 Oxygen Delivery Room Air Oxygen Flow Rate 09/08/22 15:00 09/08/22 16:00 09/08/22 20:00 Temperature 97.6 F 98.1 F 97.4 F L Pulse Rate 52 L 57 L 58 L Respiratory Rate 16 16 16 Blood Pressure 122/59 L 113/63 111/53 L Pulse Oximetry 94 100 99 Oxygen Delivery Oxygen Flow Rate 09/09/22 00:00 09/09/22 04:00 09/09/22 06:00 Temperature 97.3 F L 97.5 F L 97.5 F L Pulse Rate 57 L 53 L 53 L Respiratory Rate 16 14 14 Blood Pressure 127
--- NOTE | 2022-09-09 13:52 | WPDANESPN ---
Anes - Prog Note Post-Op Date/Time: 09/09/22 13:52 Vital Signs: Last Vital Signs Temp 36.4 C L 09/09/22 06:00 Pulse 53 L 09/09/22 06:00 Resp 14 09/09/22 06:00 BP 115/54 L 09/09/22 06:00 Pulse Ox 97 09/09/22 06:00 O2 Del Method Room Air 09/08/22 13:55 O2 Flow Rate 8 09/08/22 13:40 Pain Score (VAS): 0 I/O: Intake & Output 09/08/22 09/09/22 09/09/22 23:59 07:59 15:59 Intake Total 1394 650 480 Output Total 450 Balance 944 650 480 Laboratory Tests 09/09/22 06:28 09/09/22 06:28 09/09/22 09/09/22 06:28 06:28 WBC 6.4 RBC 3.20 L Hgb 9.9 L Hct 30.0 L MCV 93.8 MCH 30.9 MCHC 33.0 RDW 14.5 Plt Count 163 MPV 11.4 H Sodium 139 Potassium 3.0 L Chloride 107 Carbon Dioxide 28 Anion Gap 4 L BUN 17 Creatinine 1.30 Estim Creat Clear Calc 40 Estimated GFR 53 L Glucose 96 Calcium 8.2 L Total Bilirubin 2.4 H AST 41 ALT 190 H Alkaline Phosphatase 152 H Total Protein 6.0 L Albumin 3.1 L Microbiology 09/06/22 22:13 Blood Blood Culture - Final Klebsiella pnemoniae 09/06/22 22:13 Blood Blood Culture - Final Klebsiella pnemoniae Patient Feedback: Patient satisfied with anesthetic care.
--- NOTE | 2022-09-09 14:17 | WPDGIPROGNO ---
Progress Note: A&P Assessment and Plan (1) Cholangitis: Code(s): K83.09 - Other cholangitis Status: Acute Assessment and Plan: treated successfully with ercp, sphincterotomy and removed large stone with pus then followed by lap savana Klebsiella in blood cultures, still on iv abx normal wbc today and liver enzymes keep coming down he is clinically much better (2) Bacteremia: Code(s): R78.81 - Bacteremia Status: Acute Assessment and Plan: + blood cultures- klebsiella on antibiotics and pending final sensitivity (3) Severe sepsis: Code(s): A41.9 - Sepsis, unspecified organism; R65.20 - Severe sepsis without septic shock Status: Acute Assessment and Plan: improved (4) Choledocholithiasis: Code(s): K80.50 - Calculus of bile duct without cholangitis or cholecystitis without obstruction Status: Acute Assessment and Plan: treated with ercp and lap savana (5) Upper abdominal pain: Code(s): R10.10 - Upper abdominal pain, unspecified Status: Acute (6) Transaminitis: Code(s): R74.01 - Elevation of levels of liver transaminase levels Status: Acute Assessment and Plan: trending down Subjective Date/time seen: 09/09/22 14:17 Interval history: doing well, tolerating diet, bili is coming down Review of Systems Review of Systems: All systems reviewed & are unremarkable except as noted in HPI and below Exam Const: General: comfortable, no acute distress and awake Orientation/consciousness: patient oriented x3 HENMT: Face/Nose/Sinus: Normal nares present Eyes: General: appearance normal, both eyes and all related structures Neck: Neck: supple Resp: Auscultation: clear to auscultation bilaterally Cardio: Rate: regular rate GI: Inspection: non-distended and incision (incisions dry and intact) GI Palp: Yes Soft to palpation and No Tenderness to palpation present (GI) Auscultation: normal bowel sounds Skin: Other: less icterus Neuro: General: moves all extremities and no focal motor deficits Extrem: General: no calf tenderness and no edema Psych: Mental Status: mental status grossly normal Insight: Good insight present (Psych) Objective Data Vital Signs Vital Signs: Vital Signs - 24 hr 09/08/22 14:30 09/08/22 15:00 09/08/22 16:00 Temperature 97.5 F L 97.6 F 98.1 F Pulse Rate 52 L 52 L 57 L Respiratory Rate 16 16 16 Blood Pressure 111/61 122/59 L 113/63 Pulse Oximetry 94 94 100 09/08/22 20:00 09/09/22 00:00 09/09/22 04:00 Temperature 97.4 F L 97.3 F L 97.5 F L Pulse Rate 58 L 57 L 53 L Respiratory Rate 16 16 14 Blood Pressure 111/53 L 127/46 L 115/54 L Pulse Oximetry 99 99 97 09/09/22 06:00 Temperature 97.5 F L Pulse Rate 53 L Respiratory Rate 14 Blood Pressure 115/54 L Pulse Oximetry 97 Intake/Output Intake/Output: Intake & Output 09/06/22 09/07/22 09/08/22 09/09/22 23:59 23:59 23:59 23:59 Intake Total 1000 2940 3294 1130 Output Total 1650 Balance 1000 2940 1644 1130 Meds/Results Medications: Active Medications Generic Name Dose Route Start Last Admin Trade Name Freq PRN Reason Stop Dose Admin Hydrocodone Bitart/Acetaminophen 1 tab 09/08/22 14:05 Hydrocodone/Acetaminophen (*Crx) 5-325 Mg Tablet PO Q4H PRN Pain Rated 4-6 Hydrocodone Bitart/Acetaminophen 1 tab 09/08/22 14:05 Hydrocodone/Acetaminophen (*Crx) 7.5-325 Mg Tablet PO Q4H PRN Pain Rated 7-10 Amlodipine Besylate 5 mg 09/07/22 09:00 09/08/22 17:35 Amlodipine Besylate 5 Mg Tablet PO Not Given BID MARIAJOSE Aspirin 81 mg 09/07/22 09:00 09/09/22 09:02 Aspirin 81 Mg Enteric Tablet PO 81 mg DAILY MARIAJOSE Administration Chlorthalidone 25 mg 09/07/22 09:00 09/09/22 09:02 Chlorthalidone 25 Mg Tablet PO 25 mg DAILY MARIAJOSE Administration Ibuprofen 600 mg 09/08/22 14:05 Ibuprofen 600 Mg Tablet PO Q6H PRN Pain Rated 1-3 Levofloxac
[2022-09-09] MEDS: levoFLOXacin 750 MG TABLET PO (21:23)
[2022-09-10] VITALS: BP 139/73; PULSE 61; RESP 14; TEMP 36.4; O2SAT 100
[2022-09-10 04:00] VITALS: BP 130/59; PULSE 52; RESP 14; TEMP 36; O2SAT 98
--- NOTE | 2022-09-10 07:55 | WPDGIPROGNO ---
Progress Note: A&P Assessment and Plan (1) Choledocholithiasis: Code(s): K80.50 - Calculus of bile duct without cholangitis or cholecystitis without obstruction Status: Acute Assessment and Plan: Patient appears to be improving rather dramatically. Admitted with cholangitis with common bile duct gallstone. Now status post ERCP and cholecystectomy. His white count is improved. LFTs are improving. Plan to advance to a low-fat diet. Discharge will be left to the discretion of the surgical service. Complete course of antibiotics advised. (2) Cholangitis: Code(s): K83.09 - Other cholangitis Status: Acute (3) Transaminitis: Code(s): R74.01 - Elevation of levels of liver transaminase levels Status: Acute Subjective Date/time seen: 09/10/22 07:55 Patient seen today in the absence of Dr. Hall. Patient alert comfortable this morning. States his diet is not fully returned to normal. He feels much better after last several days. Patient has undergone ERCP with the removal of a common bile duct gallstone as well as laparoscopic cholecystectomy. Review of Systems Review of Systems: Review of systems noncontributory. Patient does have gradual improvement of appetite but not yet back to baseline. Exam Narrative: Physical exam reveals patient be alert. He is afebrile and anicteric. Lungs are clear to auscultation percussion. Heart without murmur. Abdomen bowel sounds present soft mild tenderness at area of incision. Objective Data Vital Signs Vital Signs: Vital Signs - 24 hr 09/09/22 08:00 09/09/22 09:00 09/09/22 16:32 Temperature 97.7 F Pulse Rate 52 L 47 L Respiratory Rate 18 Blood Pressure 121/61 123/59 L Pulse Oximetry 100 Oxygen Delivery Room Air 09/09/22 20:00 09/09/22 22:00 09/09/22 20:00 Temperature 97.6 F 97.6 F Pulse Rate 51 L 51 L Respiratory Rate 14 14 Blood Pressure 139/73 139/73 Pulse Oximetry 100 100 Oxygen Delivery Room Air 09/10/22 00:00 09/10/22 04:00 Temperature 97.6 F 96.8 F L Pulse Rate 61 52 L Respiratory Rate 14 14 Blood Pressure 139/73 130/59 L Pulse Oximetry 100 98 Oxygen Delivery Intake/Output Intake/Output: Intake & Output 09/07/22 09/08/22 09/09/22 09/10/22 23:59 23:59 23:59 23:59 Intake Total 2940 3294 2470 400 Output Total 1650 600 Balance 2940 1644 1870 400 Meds/Results Medications: Active Medications Generic Name Dose Route Start Last Admin Trade Name Freq PRN Reason Stop Dose Admin Hydrocodone Bitart/Acetaminophen 1 tab 09/08/22 14:05 Hydrocodone/Acetaminophen (*Crx) 5-325 Mg Tablet PO Q4H PRN Pain Rated 4-6 Hydrocodone Bitart/Acetaminophen 1 tab 09/08/22 14:05 Hydrocodone/Acetaminophen (*Crx) 7.5-325 Mg Tablet PO Q4H PRN Pain Rated 7-10 Amlodipine Besylate 5 mg 09/07/22 09:00 09/09/22 17:01 Amlodipine Besylate 5 Mg Tablet PO Not Given BID MARIAJOSE Aspirin 81 mg 09/07/22 09:00 09/09/22 09:02 Aspirin 81 Mg Enteric Tablet PO 81 mg DAILY MARIAJOSE Administration Chlorthalidone 25 mg 09/07/22 09:00 09/09/22 09:02 Chlorthalidone 25 Mg Tablet PO 25 mg DAILY MARIAJOSE Administration Ibuprofen 600 mg 09/08/22 14:05 Ibuprofen 600 Mg Tablet PO Q6H PRN Pain Rated 1-3 Levofloxacin 750 mg 09/09/22 21:00 09/09/22 21:23 Levofloxacin 750 Mg Tablet PO 09/16/22 23:59 750 mg Q48H MARIAJOSE Administration Lisinopril 40 mg 09/07/22 09:00 09/09/22 09:00 Lisinopril 20 Mg Tablet PO Not Given DAILY MARIAJOSE Morphine Sulfate 2 mg 09/08/22 14:05 Morphine Sulfate (*Crx) 2 Mg/Ml Inj IV PUSH Q2H PRN Pain Rated 4-6 Morphine Sulfate 4 mg 09/08/22 14:05 Morphine Sulfate (*Crx) 4 Mg/Ml Inj IV PUSH Q2H PRN Pain Rated 7-10 Ondansetron HCl 4 mg 09/06/22 22:38 Ondansetron Inj 4 Mg/2 Ml Vial IV PUSH Q4H PRN Nausea Potassium Chloride 20 meq 09/07/22 08:00 09/09/22 17:01
[2022-09-10] MEDS: lisinopriL 20 MG TABLET 40 MG PO (08:48)
[2022-09-10] MEDS: amLODIPine BESYLATE 5 MG TABLET PO (08:48)
[2022-09-10] MEDS: ASPIRIN 81 MG ENTERIC TABLET PO (08:49)
[2022-09-10] MEDS: POTASSIUM CHLORIDE 20 MEQ TABLET.ER PO ×2 (08:49→12:07)
[2022-09-10] MEDS: CHLORTHALIDONE 25 MG TABLET PO (08:49)
[2022-09-10] MEDS: SPIRONOLACTONE 50 MG TABLET PO (08:49)
--- NOTE | 2022-09-10 12:11 | PM.DS ---
DS: Admitting Diagnosis Discharge Date September 10, 2022 Admitting Diagnosis cholelithiasis, sepsis present on admission DS: Discharge Diagnosis Discharge Diagnosis (1) Choledocholithiasis: Code(s): K80.50 - Calculus of bile duct without cholangitis or cholecystitis without obstruction Status: Acute Assessment and Plan: doing well, tolerating diet. Status post cholecystectomy. Drain in place. Await culture results to transition to oral that he can likely be discharged (2) Transaminitis: Code(s): R74.01 - Elevation of levels of liver transaminase levels Status: Acute Assessment and Plan: improved (3) Tobacco abuse: Code(s): Z72.0 - Tobacco use Status: Acute Assessment and Plan: nicotine patch as needed (4) HTN (hypertension): Qualifiers: Hypertension type: essential hypertension Qualified Code(s): I10 - Essential (primary) hypertension Code(s): I10 - Essential (primary) hypertension Status: Acute Assessment and Plan: restart home meds as needed (5) PAF (paroxysmal atrial fibrillation): Code(s): I48.0 - Paroxysmal atrial fibrillation Status: Acute Assessment and Plan: rate controlled DS: Summary Hospital Course Hospital Course: patient was admitted for sepsis. Found have choledocholithiasis. Underwent stone retrieval. Pus at that time was noted the common bile duct. Surgery was consulted and patient underwent cholecystectomy. Did well postop. Will continue antibiotics orally for the next 7 days. Otherwise labs normalized patient is doing well and tolerating a diet he can be discharged follow-up surgery and primary care physician. Time Spent with Patient Time attestation: Total time spent providing and/or coordinating discharge services: Exam Narrative: patient is laying in a stretcher Const: General: comfortable, no acute distress, well developed, alert, awake, average body habitus and thin Nutritional Appearance: average body habitus and thin Orientation/consciousness: patient oriented x3 HENMT: Head: normal to inspection, normocephalic and atraumatic Ears: hearing grossly normal bilaterally Face/Nose/Sinus: normal facial exam Face and sinus: normal facial exam Eyes: General: appearance normal, both eyes and all related structures Sclera: scleral abnormality bilateral other ( icterus) Pupils: Equal, round and reactive pupils present EOM: EOMs intact bilaterally Neck: Neck: full ROM, no lymphadenopathy and no JVD Thyroid: thyroid normal Lymphatic: no lymphadenopathy noted Resp: Effort & Inspection: normal respiratory effort and able to speak in complete sentences Auscultation: clear to auscultation bilaterally Cardio: Jugular venous distension: no JVD Rate: regular rate Rhythm: regular rhythm Heart sounds: S1 normal heart sound present and S2 normal heart sound present GI: Inspection: normal to inspection Auscultation: normal bowel sounds : General: Yes deferred Skin: Rashes: no rashes Wounds: no wounds Other: jaundiced Neuro: General: patient oriented x3, CN's II-XI intact bilaterally and Unable to assess gait Cranial nerves: Yes CN's II-XII intact bilaterally and Yes Equal, round and reactive pupils present Cognition (Neuro): normal cognition Speech: normal speech Gait exam (Neuro): Normal gait present and Unable to assess gait Motor exam (neuro): 5/5 motor strength present throughout Sensory Exam: No Sensory deficit (Neuro) Extrem: General: normal to inspection, full ROM, no joint enlargement and no pedal edema DS: Data Data Completed and Pending Completed studies during hospitalization: Pending at discharge 09/08/22 12:44 Surgical [PTH] Routine Labs on day of discharge: Labs from last 24 hours 09/10/22 09:23 Potassium 3.0 L Discharge Plan Discharge Attending physician on discharge: [employer] provide
[2022-09-10] MEDS: POTASSIUM CHLORIDE 20 MEQ PACKET (FOR LIQUID) 40 MEQ PO (12:27)
== END 2022-09-10 12:45 | disposition home or self-care (01) | DRG 854 ==
LOC: ANHED 22:25 → ANH3MEDSUR 23:02
PROVIDERS: Internal Medicine Gastroenterology; Surgery; Admitting Provider Internal Medicine; Emergency Provider Emergency Medicine; PCP Family Medicine; Visit Provider Chiropractor
PROC: 0FC98ZZ Extirpation of Matter from Common Bile Duct, Via Natural or Artificial Opening Endoscopic (ICD-10-PCS; CPT 43260; principal; 2022-09-07 15:15)
PROC: 0FT44ZZ Resection of Gallbladder, Percutaneous Endoscopic Approach (ICD-10-PCS; CPT 47562; principal; 2022-09-08 15:00)
DX: A41.9 Sepsis, unspecified organism (principal); K80.62 Calculus of gallbladder and bile duct with acute cholecystitis without obstruction; K82.1 Hydrops of gallbladder; R65.20 Severe sepsis without septic shock; Z20.822 Contact with and (suspected) exposure to COVID-19; I10 Essential (primary) hypertension; I48.0 Paroxysmal atrial fibrillation; F41.1 Generalized anxiety disorder; M19.90 Unspecified osteoarthritis, unspecified site; H35.30 Unspecified macular degeneration; F17.210 Nicotine dependence, cigarettes, uncomplicated; Z79.82 Long term (current) use of aspirin
CPT/HCPCS: 36415; 74177; 74329; 76705; 80053; 80074; 81001; 83605; 83690; 83735; 84132; 85025; 85027; 87040; 87077; 87186; 88304; 93005; 96374; 96375; 99285; A9270; J0330; J1100; J1170; J2270; J2405; J2543; J2704; J2710; J3010; J7030; J7120; Q9967; U0003; U0005

== ENCOUNTER 2022-12-14 12:13 | Outpatient (CLI) | payer MEDICARE, SELFPAY ==
--- NOTE | ~2022-12-14 | XR_ITS ---
EXAMINATION: XR mandible min 4V DATE: 12/14/2022 12:44 INDICATION: Bilateral jaw pain. TECHNIQUE: 4 views of the mandible were obtained. COMPARISON: None. FINDINGS: Bone alignment is normal. No fracture. The temporomandibular joints are normal. IMPRESSION: 1. No etiology for the patient's symptoms. Reviewed, dictated and finalized at location [facility] [employer]
== END 2022-12-14 12:14 | disposition home or self-care (01) ==
PROVIDERS: PCP Family Medicine; Visit Provider Family Medicine
DX: R68.84 Jaw pain (principal)
CPT/HCPCS: 70110

== ENCOUNTER 2023-01-10 13:54 | Outpatient (CLI) | payer MEDICARE, SELFPAY ==
[2023-01-10 14:10] LABS: Hematocrit 43.2 % (42.0-52.0); Mean Corpuscular HGB Conc 34.7 g/dl (32-36); Mean Corpuscular Hemoglobin 31.2 pg (26-34); Mean Corpuscular Volume 89.8 fl (80-100); Mean Platelet Volume 10.7 fl (7.4-10.4); Platelet Count Result 243 k/mm3 (150-375); Red Blood Count 4.81 M/mm3 (4.6-6.20); Red Cell Distribution Width 14.7 % (11.5-14.5); White Blood Count 5.7 K/mm3 (4.5-10.0)
[2023-01-10 14:17] LABS: Appearance Urine Clear (Clear); Bacteria Urine None Seen /hpf; Bilirubin Urine Negative (Negative); Blood Urine Negative (Negative); Color Urine Yellow (Yellow); Glucose Urine UA Negative (Negative); Ketones Urine Negative (Negative); Leukocyte Esterase Ur Trace LEU/UL (NEGATIVE); Nitrate Urine Negative (Negative); Non Pathogenic Casts 0-2; Protein Urine Negative (Negative); RBC Urine 0-2 /hpf (0-2); Specific Grav Ur 1.005 (1.001-1.035); Squamous Epithelial Cell Urine None seen /hpf (Few); Urobilinogen Urine 0.2 mg/dL (<2.0); WBC Urine 0-5 /hpf (0-3)
[2023-01-10 14:20] LABS: Alanine Aminotransferase 17 U/L (6-50); Albumin Level 4.9 g/dL (3.5-5.1); Alkaline Phosphatase 46 U/L (38-126); Anion Gap 7 mmol/L (8-16); Aspartate Amino Transferase 18 U/L (17-59); Blood Urea Nitrogen 17 mg/dL (9-20); Calcium 9.5 mg/dL (8.4-10.2); Carbon Dioxide 30 mmol/L (22-30); Chloride 101 mmol/L (98-107); Cholesterol 150 mg/dL (0-200); Estimated Glomerular Filt Rate > 60; Glucose 71 mg/dL (65-110); HDL Direct 55 mg/dL; Potassium 3.9 mmol/L (3.4-5.0); Sodium 138 mmol/L (137-145); Triglycerides 109 mg/dL (<150)
[2023-01-10 14:28] LABS: Add Urine Microscopic? YES
[2023-01-10 14:31] LABS: LDL Cholesterol Direct 72 mg/dL
== END 2023-01-10 13:55 | disposition home or self-care (01) ==
PROVIDERS: PCP Family Medicine; Visit Provider Family Medicine
DX: R53.83 Other fatigue (principal); I10 Essential (primary) hypertension; E78.5 Hyperlipidemia, unspecified
CPT/HCPCS: 36415; 80053; 80061; 81001; 81003; 84443; 85027

== ENCOUNTER 2023-01-13 14:39 | Outpatient (NON) | payer MEDICARE, SELFPAY | END 2023-01-13 14:40 | disposition home or self-care (01) | PROVIDERS: PCP Family Medicine; Visit Provider Nurse Practitioner | DX: L82.0 Inflamed seborrheic keratosis (principal) | CPT/HCPCS: 88305 ==

== ENCOUNTER 2023-01-19 14:23 | Outpatient (CLI) | payer MEDICARE, SELFPAY ==
--- NOTE | ~2023-01-19 | CT_ITS ---
CT Scan of the Chest without Contrast: Clinical Indication: Pulmonary nodule Technique: Contiguous sections were acquired throughout the chest without intravenous contrast. Dose reduction technique was used on this scan by utilizing automated exposure control and iterative recon struction technique. The dose-length product (DLP) was 111.53 mGy-cm. COMPARISON: 04/20/2021 Findings: There is no evidence of any significant mediastinal, hilar or axillary lymphadenopathy. Mild atherosc lerotic calcifications of the aorta and coronary arteries are present. There is no evidence of pleural or pericardial effusion. Stable 3 mm left lower lobe pulmonary nodule noted (axial image 105). Linear scarring in the right mi ddle lobe noted. Images through the upper abdomen reveal fat-containing mass of the right kidney. Stable right adrenal nodule noted. Impression: Stable 3 mm left lower lobe pulmonary nodule. This is most likely benign. Fat-containing lesion right kidney. This could reflect angiomyolipoma or possibly postablation change . Correlate with any relevant history. Reviewed, dictated and finalized at [facility]. Impression: Stable 3 mm left lower lobe pulmonary nodule. This is most likely benign. Fat-containing lesion right kidney. This could reflect angiomyolipoma or possib ly postablation change. Correlate with any relevant history.
== END 2023-01-19 14:24 | disposition home or self-care (01) ==
PROVIDERS: PCP Family Medicine; Visit Provider Family Medicine
DX: R91.1 Solitary pulmonary nodule (principal); N28.9 Disorder of kidney and ureter, unspecified
CPT/HCPCS: 71250

== ENCOUNTER 2023-07-20 14:05 | Outpatient (CLI) | payer MEDICARE, SELFPAY ==
[2023-07-20 15:27] LABS: Alanine Aminotransferase 14 U/L (6-50); Albumin Level 4.8 g/dL (3.5-5.1); Alkaline Phosphatase 49 U/L (38-126); Anion Gap 9 mmol/L (8-16); Aspartate Amino Transferase 23 U/L (17-59); Bilirubin,Total 2.5 mg/dL (0.2-1.3); Blood Urea Nitrogen 20 mg/dL (9-20); Calcium 9.6 mg/dL (8.4-10.2); Carbon Dioxide 27 mmol/L (22-30); Chloride 104 mmol/L (98-107); Estimated Glomerular Filt Rate > 60; Glucose 101 mg/dL (65-110); Potassium 3.5 mmol/L (3.4-5.0); Sodium 140 mmol/L (137-145)
== END 2023-07-20 14:06 | disposition home or self-care (01) ==
LOC: ANHLAB 14:06
PROVIDERS: PCP Family Medicine; Visit Provider Family Medicine
DX: I10 Essential (primary) hypertension (principal)
CPT/HCPCS: 36415; 80053

== ENCOUNTER 2024-01-23 13:41 | Outpatient (CLI) | payer MEDICARE, SELFPAY ==
[2024-01-23 14:32] LABS: Hematocrit 43.1 % (42.0-52.0); Hemoglobin 14.9 g/dL (14.0-18.0); Mean Corpuscular HGB Conc 34.6 g/dl (32-36); Mean Corpuscular Volume 89.8 fl (80-100); Mean Platelet Volume 10.7 fl (7.4-10.4); Platelet Count Result 337 k/mm3 (150-375); Red Cell Distribution Width 14.7 % (11.5-14.5); White Blood Count 6.1 K/mm3 (4.5-10.0)
[2024-01-23 14:33] LABS: Appearance Urine Clear (Clear); Bilirubin Urine Negative (Negative); Blood Urine Negative (Negative); Color Urine Yellow (Yellow); Glucose Urine UA Negative (Negative); Ketones Urine Negative (Negative); Leukocyte Esterase Ur Negative LEU/UL (Negative); Nitrate Urine Negative (Negative); Protein Urine Negative (Negative); Specific Grav Ur 1.006 (1.001-1.035); Urobilinogen Urine 0.2 mg/dL (<2.0); pH Urine 7.5 (5.0-9.0)
[2024-01-23 14:46] LABS: Add Urine Microscopic? NO
[2024-01-23 15:36] LABS: Alanine Aminotransferase 12 U/L (6-50); Albumin Level 4.7 g/dL (3.5-5.1); Alkaline Phosphatase 56 U/L (38-126); Anion Gap 6 mmol/L (4-12); Aspartate Amino Transferase 21 U/L (17-59); Bilirubin,Total 1.6 mg/dL (0.2-1.3); Blood Urea Nitrogen 12 mg/dL (9-20); Carbon Dioxide 30 mmol/L (22-30); Chloride 105 mmol/L (98-107); Cholesterol 134 mg/dL (0-200); Estimated Glomerular Filt Rate > 60; Glucose 101 mg/dL (65-110); HDL Direct 54 mg/dL; Potassium 4.3 mmol/L (3.4-5.0); Sodium 141 mmol/L (137-145); Triglycerides 75 mg/dL (<150)
[2024-01-23 15:47] LABS: LDL Cholesterol Direct 81 mg/dL
== END 2024-01-23 13:42 | disposition home or self-care (01) ==
LOC: ANHLAB 13:45
PROVIDERS: PCP Family Medicine; Visit Provider Family Medicine
DX: E78.5 Hyperlipidemia, unspecified (principal); I10 Essential (primary) hypertension; H54.62 Unqualified visual loss, left eye, normal vision right eye
CPT/HCPCS: 36415; 80053; 80061; 81003; 84443; 85027

== ENCOUNTER 2025-09-09 11:13 | Outpatient (CLI) | payer MEDICARE, SELFPAY ==
[2025-09-09 11:57] LABS: Alanine Aminotransferase 19 U/L (6-50); Albumin Level 4.6 g/dL (3.5-5.1); Alkaline Phosphatase 49 U/L (38-126); Anion Gap 6 mmol/L (4-12); Aspartate Amino Transferase 27 U/L (17-59); Bilirubin,Total 1.8 mg/dL (0.2-1.3); Blood Urea Nitrogen 20 mg/dL (9-20); Calcium 9.7 mg/dL (8.4-10.2); Carbon Dioxide 29 mmol/L (22-30); Chloride 104 mmol/L (98-107); Estimated Glomerular Filt Rate > 60; Glucose 110 mg/dL (65-110); Potassium 3.5 mmol/L (3.4-5.0); Sodium 139 mmol/L (137-145); Total Protein 7.6 g/dL (6.3-8.2)
== END 2025-09-09 11:14 | disposition home or self-care (01) ==
PROVIDERS: PCP Family Medicine; Visit Provider Family Medicine
DX: I10 Essential (primary) hypertension (principal)
CPT/HCPCS: 36415; 80053